=== PATIENT | male | born 1940 | race Caucasian/White ===

== ENCOUNTER 2024-11-03 09:20 | Inpatient (IN) | payer MEDICARE, SELFPAY ==
[2024-11-03] VITALS (11 sets, daily range): BP systolic 109–150; BP diastolic 59–89; PULSE 84–108; TEMP 36.7–38.1; O2SAT 92–97; BMI 31.0; BMI 30.9
--- NOTE | 2024-11-03 09:50 | XR_ITS ---
The [address] [address] Patient Name: PATTIE AMADO MRN: [id number] date: 1940 Sex: M Assigned Patient Location: ER Current Patient Location: ER Accession/Order Number: [id number] Exam Date: 11/03/2024 10:37 Report Date: 11/03/2024 10:43 At the request of: FREDIS MARROQUIN Procedure: XR wrist LT min 3V XR wrist LT min 3V 11/03/2024 10:33 AM SIGNS AND SYMPTOMS: Posterior left wrist pain, popping sensation PROTOCOL: Frontal, lateral, and oblique radiographs of the left wrist COMPARISON: 01/12/2023 FINDINGS: There is severe narrowing of the glenohumeral joint with partial collapse of the lunate similar to the prior exam. There is remodeling of the articular surface of the distal radius similar to the prior study. There is severe degenerative change of the first carpal metacarpal junction with radial subluxation of the base of the first metacarpal and remodeling of the articular surface similar to the prior study. There is diffuse soft tissue swelling. There is vascular calcification in the soft tissues. No acute displaced fracture. XR/XR wrist LT min 3V IMPRESSION: No fracture or dislocation. Similar significant degenerative changes of the radiocarpal joint and first carpometacarpal junction. Impression dictated by: John Farmer M.D.11/03/2024 10:43 AM Dictation Location: [place] [address] Electronically authenticated by: [id number] Y Date: 11/03/2024 10:43
--- NOTE | 2024-11-03 09:57 | ED_ITS ---
HPI HPI - General Adult General Chief complaint: Extremity Injury, Upper Stated complaint: INFECTION Time Seen by Provider: 11/03/24 09:30 Source: patient Mode of arrival: ambulance History of Present Illness HPI narrative: cc = left wrist pain; right hand dog bite Patient brought by EMS to our emergency department for evaluation after he suddenly experienced pain in the left wrist last night around 3 AM when he was getting up to use the bathroom. He denied falling. He said he went to grab something and suddenly felt a pop in his left wrist. He is also complaining of increased pain and redness of the right hand. He suffered a dog bite several days ago and was evaluated in [place] emergency department. He has skin tear there and therefore they applied topical antibiotic ointment and wrapped it up but did not suture it. He has been on Augmentin but it is making him sick with nausea and vomiting. Related Data Home Medications ?Medication ?Instructions ?Recorded ?Confirmed amlodipine 2.5 mg tablet 2.5 mg PO .QD 11/03/24 11/03/24 amoxicillin 875 mg-potassium 1 tab PO Q12H 11/03/24 11/03/24 clavulanate 125 mg tablet atorvastatin 40 mg tablet 40 mg PO .QHS 11/03/24 11/03/24 bumetanide 2 mg tablet 2 mg PO QAM 11/03/24 11/03/24 carvedilol 3.125 mg tablet 3.125 mg PO Q12H 11/03/24 11/03/24 doxepin 10 mg capsule 10 mg PO TID 11/03/24 11/03/24 fenofibrate nanocrystallized 145 145 mg PO .QD 11/03/24 11/03/24 mg tablet metoclopramide HCl 5 mg tablet 5 mg PO AC 11/03/24 11/03/24 omeprazole 40 mg capsule,delayed 40 mg PO .BIDAC 11/03/24 11/03/24 release ondansetron 4 mg disintegrating 4 mg PO Q8H PRN nausea and vomiting 11/03/24 11/03/24 tablet potassium chloride 20 mEq 20 meq PO QAM 11/03/24 11/03/24 tablet,extended release(part/cryst) prednisone 10 mg tablet 10 mg PO BIDWM 11/03/24 11/03/24 primidone 50 mg tablet 100 mg PO Q8H 11/03/24 11/03/24 tamsulosin 0.4 mg capsule 0.4 mg PO .QD 11/03/24 11/03/24 Allergies Allergy/AdvReac Type Severity Reaction Status Date / Time rivaroxaban (From Xarelto) AdvReac Severe kidney Verified 11/03/24 09:36 failure ticagrelor (From Brilinta) AdvReac Severe kidney Verified 11/03/24 09:36 failure Opioid HPI Opioid Management Most Recent Opioid Data: No Data to Display PFSH PFSH Social History Little interest or pleasure in doing things: not at all Feeling down, depressed, or hopeless: not at all Exam Narrative Exam Narrative: Nurses notes and vital signs reviewed and patient is not hypoxic. afebrile General: Well-appearing and in no apparent distress. Skin: Warm, dry, no pallor noted. No rash. Head: Normocephalic, atraumatic. Neck: Supple, non-tender. Eye: Pupils are equal, round and EOMI. No scleral icterus. Ears, Nose, Mouth, and Throat: Oral mucosa is dry Cardiovascular: Tachycardia. Respiratory: No accessory muscle use or respiratory distress. Lungs are clear to auscultation, no wheezing, rales or rhonchi Musculoskeletal: Left wrist = tenderness with some swelling throughout the left wrist. He has decreased range of motion due to the pain. EMS had applied a rigid splint to the volar portion of the left hand, wrist and forearm in order to help secure that left wrist -and wrapped in Kerlix. Right hand = 2 skin tears that are shallow are noted on the dorsal aspect of the right hand. He has increased pain, redness and swelling of the right thumb. Any movement of the right thumb causes pain. Remainder of the left upper extremity and right upper extremity are unremarkable. Neurological: A&O x4. No cranial nerve dysfunction observed. No truncal ataxia. Moves all extremities. Sensation intact. Psychiatric: Cooperative and interactive. Normal mood and affect. Constitutional Vital Signs, click to edit/add: Last Vital Signs Temp 99.5 F 11/03/24 09:23 Pulse 102 H 11/03/24 09:23 Resp 22 H 11/03/24 09:23 BP 112/59 11/03/24 09:23 Pulse Ox 97 11/03/24 10:01 O2 Del Method Nasal Cannula 11/03/24 10:01 O2 Flow Rate 3 11/03/24 10:01 Course Vital Signs Vital signs: Vital Signs Temperature 99.5 F 11/03/24 09:23 Pulse Rate 102 H 11/03/24 09:23 Respiratory Rate 22 H 11/03/24 09:23 Blood Pressure 112/59 11/03/24 09:23 Pulse Oximetry 97 11/03/24 09:23 Oxygen Delivery Method Nasal Cannula 11/03/24 09:23 Oxygen Delivery Flow Rate 3 11/03/24 09:23 Temperature 99.5 F 11/03/24 09:23 Pulse Rate 102 H 11/03/24 09:23 Respiratory Rate 22 H 11/03/24 09:23 Blood Pressure 112/59 11/03/24 09:23 Pulse Oximetry 97 11/03/24 10:01 Oxygen Delivery Method Nasal Cannula 11/03/24 10:01 Oxygen Delivery Flow Rate 3 11/03/24 10:01 Medical Decision Making MDM Narrative Medical decision making narrative: The patient was given oral dissolvable Zofran. X-rays of the left wrist were also ordered. He was ordered to receive oral doxycycline -we can switch him from the Augmentin to doxycycline since the is having GI upset. I talked to him about the importance of taking the antibiotic with food, therefore I will also prescribe some Zofran so that his appetite is stimulated and his nausea is controlled. ED nurse applied topical bacitracin to the wounds of the right hand -he is outside of the window for any suture repair. She also dressed with the right hand with dry gauze. X-rays of the left wrist were read by the radiologist. The degenerative changes of the radiocarpal joint and first carpometacarpal junction are all old and can be seen on comparison imaging on January 12, 2023. The patient was informed of these results and discharged home. David wrap was applied to the patient's left wrist by the emergency department nurse. Because of the deformity in the left hand he does not appropriately fit into a Velcro wrist splint. I asked him to change his antibiotic from Augmentin to doxycycline. When I went to talk to him about these findings, he told me that he is not able to care for himself. He told me that he is too weak to walk due to chronic muscle atrophy in his legs. He says that his cannot take care of him either. He said that the pain in the left wrist will make him unable to get around and do it he needs to at home. He also said that the infection in the right hand has further limited his ability to take care of himself. He told me that the Augmentin is further worsen this by making him so sick that he cannot eat or drink appropriately. He told me that he had previously been in a jail for care - he could not provide a timeline for that. I spoke with Dr. Stauffer, he agreed to admit this patient for further monitoring and care. Will do an evaluation to try and ascertain his ability to take care of himself. He he may eventually need jail care once his acute hand infection and difficulty ambulating can be investigated and addressed. Imaging Data xr wrist: Radiologist's impression: ITS Impressions Wrist X-Ray 11/03/24 09:50 IMPRESSION: No fracture or dislocation. Similar significant degenerative changes of the radiocarpal joint and first carpometacarpal junction. Impression dictated by: John Farmer M.D.11/03/2024 10:43 AM Dictation Location: [facility] Electronically authenticated by: [id number] Y Date: 11/03/2024 10:43 Discharge Plan Discharge Chief Complaint: Extremity Injury, Upper Clinical Impression: Cellulitis of hand, right, Dog bite, Adult failure to thrive, Left wrist sprain Patient Disposition: Admitted As Inpatient Time of Disposition Decision: 11:29 Prescriptions / Home Meds: No Action atorvastatin 40 mg tablet 40 mg PO .QHS primidone 50 mg tablet 100 mg PO Q8H prednisone 10 mg tablet 10 mg PO BIDWM bumetanide 2 mg tablet 2 mg PO QAM amlodipine 2.5 mg tablet 2.5 mg PO .QD doxepin 10 mg capsule 10 mg PO TID omeprazole 40 mg capsule,delayed release(DR/EC) 40 mg PO .BIDAC carvedilol 3.125 mg tablet 3.125 mg PO Q12H potassium chloride 20 mEq tablet,ER particles/crystals 20 meq PO QAM metoclopramide HCl 5 mg tablet 5 mg PO AC tamsulosin 0.4 mg capsule 0.4 mg PO .QD ondansetron 4 mg tablet,disintegrating 4 mg PO Q8H PRN (Reason: nausea and vomiting) amoxicillin-pot clavulanate 875-125 mg tablet 1 tab PO Q12H Rx Instructions: THRU 11/06/24 fenofibrate nanocrystallized 145 mg tablet 145 mg PO .QD Print Language: Pashto Referrals: Physician,Non-Staff, MD [Physician] - 1 week
--- NOTE | 2024-11-03 10:01 | PC.NURSE ---
pt states he wears 3 to 4L of O2 at home at all times.
[2024-11-03] MEDS: BACITRACIN 0.9 GM PACKET 1 PACKET TOPICAL (10:08)
[2024-11-03] MEDS: DOXYCYCLINE MONOHYDRATE 100 MG CAPSULE PO (10:08)
[2024-11-03] MEDS: ONDANSETRON 4 MG RAPDIS TABLET SL (10:08)
[2024-11-03 11:45] LABS: Basophils Absolute Auto 0.1 10^3/uL (0.0-0.1); Basophils Percent Auto 0.4 % (0.2-2.0); Eosinophils Absolute Auto 0.3 10^3/uL (0.0-0.7); Eosinophils Percent Auto 2.1 % (0.9-7.0); Hematocrit 35.2 % (42.0-54.0); Hemoglobin 11.6 g/dL (14.0-18.0); Immature Granulocytes Abs Auto 0.13 10^3/uL (0.00-0.03); Immature Granulocytes Pct Auto 0.9 % (0.0-0.5); Lymphocytes Absolute Auto 2.4 10^3/uL (1.2-3.8); Lymphocytes Percent Auto 16.5 % (20.5-60.0); Mean Corpuscular Hemoglobin 31.8 pg (25.9-34.0); Mean Corpuscular Volume 96.4 fL (80.0-94.0); Mean Platelet Volume 10.2 fL (9.5-13.5); Monocytes Absolute Auto 2.3 10^3/uL (0.3-0.8); Monocytes Percent Auto 15.6 % (1.7-12.0); Neutrophils Absolute Auto 9.5 10^3/uL (1.4-6.5); Neutrophils Percent Auto 64.5 % (43.0-75.0); Platelet Count 206 10^3/uL (150-450); Red Blood Count 3.65 10^6/uL (4.70-6.10); Red Cell Distribution Width 15.3 % (11.0-15.0); White Blood Count 14.7 10^3/uL (4.0-11.0)
--- NOTE | 2024-11-03 11:49 | P.HP_ITS ---
HPI H&P: HPI History of Present Illness Chief complaint: INFECTION Narrative: Patient was seen in the emergency room a few days earlier secondary to dog bite he was prescribed Augmentin, unable to tolerate that started having increasing nausea vomiting and then this morning had fever and chills, presented to the emergency room, significant leukocytosis, labs are not all back yet but with fever, tachycardia, leukocytosis and wound on hand consistent with possible tenosynovitis, sepsis highly likely, lactic acidosis is pending, patient will be admitted for workup and treatment of sepsis secondary to dog bite When I saw patient in the emergency room, resting very uncomfortable in bed, having shaking chills and fever had just spiked just prior to that over 101. Denies chest pain or shortness of breath, he has a baseline shortness of breath but does not feel any worse with that, mostly complaining of pain in the left hand Opioid HPI Opioid Management Most Recent Pain and Opioid Data: Last NOV Pain Assessment 11/03/24 11:53 Review of Systems ROS Status of ROS 10 or more systems reviewed and unremark able except as noted in history and below [facility] Medical History (Updated 11/03/24 @ 12:03 by [place] Stauffer MD) Arthritis ?M19.90 - Unspecified osteoarthritis, unspecified site (ICD-10) Kidney disease ?N28.9 - Disorder of kidney and ureter, unspecified (ICD-10) Hypertension ?I10 - Essential (primary) hypertension (ICD-10) Surgical History (Updated 11/03/24 @ 11:51 by Emily Espinal) H/O heart artery stent ?Z95.5 - Presence of coronary angioplasty implant and graft (ICD-10) Social History Little interest or pleasure in doing things: not at all Feeling down, depressed, or hopeless: not at all Meds Home Medications and Allergies Home Medications ?Medication ?Instructions ?Recorded ?Confirmed ?Type amlodipine 2.5 mg tablet 2.5 mg PO .QD 11/03/24 11/03/24 History amoxicillin 875 mg-potassium 1 tab PO Q12H 11/03/24 11/03/24 History clavulanate 125 mg tablet atorvastatin 40 mg tablet 40 mg PO .QHS 11/03/24 11/03/24 History bumetanide 2 mg tablet 2 mg PO QAM 11/03/24 11/03/24 History carvedilol 3.125 mg tablet 3.125 mg PO Q12H 11/03/24 11/03/24 History doxepin 10 mg capsule 10 mg PO TID 11/03/24 11/03/24 History fenofibrate nanocrystallized 145 145 mg PO .QD 11/03/24 11/03/24 History mg tablet metoclopramide HCl 5 mg tablet 5 mg PO AC 11/03/24 11/03/24 History omeprazole 40 mg capsule,delayed 40 mg PO .BIDAC 11/03/24 11/03/24 History release ondansetron 4 mg disintegrating 4 mg PO Q8H PRN nausea and vomiting 11/03/24 11/03/24 History tablet potassium chloride 20 mEq 20 meq PO QAM 11/03/24 11/03/24 History tablet,extended release(part/cryst) prednisone 10 mg tablet 10 mg PO BIDWM 11/03/24 11/03/24 History primidone 50 mg tablet 100 mg PO Q8H 11/03/24 11/03/24 History tamsulosin 0.4 mg capsule 0.4 mg PO .QD 11/03/24 11/03/24 History Allergies Allergy/AdvReac Type Severity Reaction Status Date / Time rivaroxaban (From Xarelto) AdvReac Severe kidney Verified 11/03/24 09:36 failure ticagrelor (From Brilinta) AdvReac Severe kidney Verified 11/03/24 09:36 failure Exam Constitutional Vital Signs, click to edit/add: Last Vital Signs Temp 99.5 F 11/03/24 09:23 Pulse 102 H 11/03/24 09:23 Resp 22 H 11/03/24 09:23 BP 112/59 11/03/24 09:23 Pulse Ox 97 11/03/24 10:01 O2 Del Method Nasal Cannula 11/03/24 10:01 O2 Flow Rate 3 11/03/24 10:01 Documenting provider has reviewed patient's vital signs: yes Common normals: apparent distress (Moderate distress secondary to shaking chills) Respiratory Common normals: normal respiratory effort (Tachypneic secondary to chills) Auscultation: diminished lung sounds Cardio Common normals: regular rate and regular rhythm Extremity Common normals: abnormal to inspection (Left hand in David wrap, does have some erythema and swelling in the area of ) and limited ROM (Patient does have some mild pain with elevation of fingers but not severe) Other: Bilateral lower extremities with trace to 1+ edema Results Labs Labs: Short CBC 11/03/24 Range/Units 11:37 WBC 14.7 H (4.0-11.0) 10^3/uL Hgb 11.6 L (14.0-18.0) g/dL Hct 35.2 L (42.0-54.0) % Plt Count 206 (150-450) 10^3/uL Assessment and Plan Assessment and Plan (1) Dog bite: (2) Cellulitis of hand, right: (3) Sepsis: Plan Admission findings: Patient with fever, tachycardia, respiratory distress, leukocytosis, lactate is pending but would meet criteria for sepsis secondary to a dog bite with possible tendon involvement. 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-according to his med list not on any inhalers, does wear 3 L of supplemental oxygen has good O2 saturations with that Coronary artery disease with stent-will check BNP and high-sensitivity troponin, does have some mild peripheral edema Hypertension-continue his home medications Chronic combined congestive heart failure by history-hold off on aggressive fluid resuscitation, will hold off on bumetanide secondary to possible acute kidney injury with the sepsis Generalized anxiety disorder-continue with home medications GERD-continue with home medications BPH-continue with home medications Admission status: Patient with failed outpatient treatment of dog bite now with fever and chills and symptoms consistent with tenosynovitis leading to sepsis, possibly severe, medically necessary treatment will span 2 midnights. Inpatient status
[2024-11-03] MEDS: ACETAMINOPHEN 500 MG TABLET 1000 MG PO (11:53)
[2024-11-03 12:00] LABS: Alanine Aminotransferase 24 U/L (16-63); Albumin Globulin Ratio 0.6; Albumin Level 2.1 g/dL (3.4-5.0); Alkaline Phosphatase 105 U/L (46-116); Anion Gap 19.7; Aspartate Amino Transferase 26 U/L (15-37); Bilirubin Total 0.8 mg/dL (0.2-1.0); Calcium 8.5 mg/dL (8.5-10.1); Carbon Dioxide 19.6 mmol/L (21.0-32.0); Chloride 105 mmol/L (98-107); Estimated GFR (African America 57 (>=60 mL/min/1.73m^2); Estimated GFR (Non-African Ame 47 (>=60 mL/min/1.73m^2); Globulin 3.7 g/dL; Glucose 69 mg/dL (74-106); Potassium 4.3 mmol/L (3.5-5.1); Sodium 140 mmol/L (136-145); Total Protein 5.8 g/dL (6.4-8.2)
[2024-11-03 12:05] LABS: Lactate/Lactic Acid 1.5 mmol/L (0.4-2.0)
[2024-11-03 12:16] LABS: Erythrocyte Sedimentation Rate 29 mm/hr (<=20)
[2024-11-03 12:23] LABS: Bilirubin Urine MODERATE (NEGATIVE); Blood Urine NEGATIVE (NEGATIVE); Clarity Urine CLEAR (CLEAR); Color Urine DK. YELLOW (YELLOW); Glucose Urine UA NEGATIVE (NEGATIVE); Ketones Urine TRACE mg/dL (NEGATIVE); Leukocyte Esterase Urine TRACE (NEGATIVE); Nitrite Urine NEGATIVE (NEGATIVE); Protein Urine 30 mg/dL (NEG/TRACE); Specific Gravity Urine >=1.030 (1.005-1.025); Urobilinogen Urine 0.2 EU/dL (0.2-1.0); pH Urine 5.5 (5.0-9.0)
[2024-11-03 12:25] LABS: Urine Microscopic Indicated YES
[2024-11-03 12:29] LABS: Bacteria Urine TRACE #/HPF (NONE SEEN); Cast Seen? SEEN #/LPF (NONE SEEN); Crystals Seen? None Seen #/HPF (None Seen); Hyaline Casts Urine FEW; Mucus Urine TRACE (NONE SEEN); Squamous Epithelial Cell Urine RARE #/LPF (NONE/RARE); Urine Culture Indicated NO
[2024-11-03 12:30] LABS: C Reactive Protein 26.85 mg/dL (<=0.50)
[2024-11-03 12:34] LABS: pH VBG 7.419 (7.330-7.430)
[2024-11-03 12:35] LABS: PCO2 VBG 31.3 mmHg (40.0-52.0)
[2024-11-03 12:43] LABS: Influenza Virus A Antigen Negative; Influenza Virus B Antigen Negative; Internal Control Within Normal Limits; SARS-CoV-2 Ag NEGATIVE (NEGATIVE)
[2024-11-03] MEDS: PRIMIDONE 50 MG TABLET 100 MG PO ×2 (13:56→21:26)
[2024-11-03] MEDS: LACTATED RINGER'S SOLUTION 1,000 ML 100 ML IV (13:56)
[2024-11-03] MEDS: AMLODIPINE BESYLATE 5 MG TABLET 2.5 MG PO (13:56)
[2024-11-03] MEDS: CARVEDILOL 3.125 MG TABLET PO ×2 (13:56→21:27)
[2024-11-03] MEDS: LINEZOLID IN DEXTROSE 5% 600 MG/300 ML PIGGYBACK 300 MG IV (13:56)
[2024-11-03] MEDS: TAMSULOSIN HCL 0.4 MG CAPSULE PO (13:56)
[2024-11-03] MEDS: DOXEPIN HCL 10 MG CAPSULE PO ×2 (13:57→21:27)
[2024-11-03] MEDS: PIPERACILLIN SODIUM/TAZOBACTAM 3.375 GM in 0.9 % SODIUM CHLORIDE 50 ML IV ×2 (16:09→23:30)
[2024-11-03] MEDS: PREDNISONE 10 MG TABLET PO (16:10)
[2024-11-03] MEDS: METOCLOPRAMIDE HCL 10 MG TABLET 5 MG PO (16:10)
[2024-11-03] MEDS: OMEPRAZOLE 40 MG CAPSULE.DR PO (16:10)
--- NOTE | 2024-11-03 17:22 | ECG_ITS ---
The [facility] Test Date: 2024-11-03 Pat Name: PATTIE AMADO Department: Room: Gender: Male Referral Manager: : 1940 Requested By: RAYMOND ROBLEDO Order Number: [id number] Reading MD: RAYMOND ROBLEDO Measurements Intervals [place] Rate: 89 P: [place]: QRS: 56 QRSD: 79 T: 70 QT: 340 QTc: 414 Interpretive Statements SInus with PAC's Compared to ECG 01/12/2023 15:55:23 Sinus rhythm no longer present Electronically Signed On 11-04-2024 6:10:49 EST by RAYMOND ROBLEDO
[2024-11-03 18:01] LABS: Troponin I High Sensitivity 85.5 pg/mL (4.0-76.1)
[2024-11-03] MEDS: KETOROLAC TROMETHAMINE 30 MG/ML VIAL 15 MG IVP (18:16)
[2024-11-03] MEDS: DEXAMETHASONE SOD PHOS 20 MG/5 ML VIAL 6 MG IV (18:16)
--- NOTE | 2024-11-03 18:22 | PC.NURSE ---
1723 - patient called out stating he is having chest pain. states is feels like someone is stabbing him and is a 10/10. Physician notified immediately via secure texting while vitals are being taken on patient. EKG orders, labs ordered, and assessment completed. 1725- Physician asked editorial writer to assess if it hurts worse with palpation, patient stated yes it did. 1738- EKG result sent to physician. 1745- Patient stated that pain was better but it still feels like a stabbing feeling. 1754- Patient called out for the bedpan, once patient was laid flat to put on bedpan patient started yelling that the pain was 10/10 again laying flat, and eased again when HOB elevated. 1754- Physician has been continuously updated and communicating through tiger text during everything that is happening 1757- physician is informed that patient is placed on tele and is not currently on any blood thinners. 1805- physician notified of critical high troponin. 1819- patient given toradol and dexamethason as ordered per physician.
[2024-11-03 18:37] LABS: Troponin I High Sensitivity 52.2 pg/mL (4.0-76.1)
[2024-11-03 19:31] LABS: C. Difficile PCR NEGATIVE
[2024-11-03] MEDS: ENOXAPARIN SODIUM 80 MG/0.8 ML SYRINGE SUBQ (21:27)
[2024-11-03] MEDS: ATORVASTATIN CALCIUM 40 MG TABLET PO (21:27)
[2024-11-03 21:51] LABS: Troponin I High Sensitivity 78.9 pg/mL (4.0-76.1)
[2024-11-04] VITALS (24 sets, daily range): BP systolic 93–129; BP diastolic 52–62; PULSE 59–84; TEMP 36.5–37.6; O2SAT 91–97
[2024-11-04] MEDS: LACTATED RINGER'S SOLUTION 1,000 ML 100 ML IV ×2 (00:15→15:30)
--- NOTE | 2024-11-04 01:36 | PC.NURSE ---
0005 Patient informed that employee received needle stick after drawing patient's blood previous this shift. Explained to patient protocol to draw labs including HIV and Hepatitis panels. Verbal informed consent received from patient to draw appropriate/necessary Labs. Janelle Willoughby RN was also present with this RN during explanation to patient and verbal consent. Leslie Edwards MACHINE COMPOSITOR, Hospitalist preparation operator was updated previously on needle stick injury to employee and ordered appropriate labs on patient.
[2024-11-04 01:45] LABS: Troponin I High Sensitivity 56.4 pg/mL (4.0-76.1)
[2024-11-04 02:03] LABS: HIV Antigen NON-REACTIVE (NONREACTIVE); Internal Control Within Normal Limits
[2024-11-04 02:22] LABS: Glucometer 100 mg/dL (74-106)
[2024-11-04] MEDS: LINEZOLID IN DEXTROSE 5% 600 MG/300 ML PIGGYBACK 300 MG IV ×2 (04:02→15:30)
[2024-11-04] MEDS: PRIMIDONE 50 MG TABLET 100 MG PO ×3 (05:39→21:08)
[2024-11-04] MEDS: DOXEPIN HCL 10 MG CAPSULE PO ×3 (05:39→21:08)
[2024-11-04] MEDS: PIPERACILLIN SODIUM/TAZOBACTAM 3.375 GM in 0.9 % SODIUM CHLORIDE 50 ML IV ×3 (06:00→22:19)
[2024-11-04 06:28] LABS: Mean Corpuscular HGB Conc 32.3 g/dL (29.9-35.2); Mean Corpuscular Hemoglobin 31.3 pg (25.9-34.0); Mean Corpuscular Volume 97.2 fL (80.0-94.0); Mean Platelet Volume 11.2 fL (9.5-13.5); Platelet Count 132 10^3/uL (150-450); Red Blood Count 3.19 10^6/uL (4.70-6.10); Red Cell Distribution Width 14.7 % (11.0-15.0); White Blood Count 9.1 10^3/uL (4.0-11.0)
[2024-11-04 06:50] LABS: Alanine Aminotransferase 18 U/L (16-63); Albumin Globulin Ratio 0.5; Albumin Level 1.6 g/dL (3.4-5.0); Alkaline Phosphatase 68 U/L (46-116); Anion Gap 18.4; Aspartate Amino Transferase 46 U/L (15-37); BUN Creatinine Ratio 10.5; Bilirubin Total 0.5 mg/dL (0.2-1.0); C Reactive Protein 27.54 mg/dL (<=0.50); Calcium 8.1 mg/dL (8.5-10.1); Chloride 103 mmol/L (98-107); Estimated GFR (African America 41 (>=60 mL/min/1.73m^2); Estimated GFR (Non-African Ame 34 (>=60 mL/min/1.73m^2); Globulin 3.3 g/dL; Glucose 138 mg/dL (74-106); Potassium 4.4 mmol/L (3.5-5.1); Sodium 137 mmol/L (136-145); Total Protein 4.9 g/dL (6.4-8.2)
[2024-11-04 07:04] LABS: Lymphocytes Absolute Manual 0.91 10^3/uL (1.20-3.80); Monocytes Absolute Manual 0.72 10^3/uL (0.30-0.80); Segmented Neut Absolute Manual 7.46 10^3/uL (1.4-6.5)
[2024-11-04] MEDS: PREDNISONE 10 MG TABLET PO ×2 (07:45→17:40)
[2024-11-04] MEDS: 0.9 % SODIUM CHLORIDE 1,000 ML 250 ML IV (07:45)
[2024-11-04] MEDS: OMEPRAZOLE 40 MG CAPSULE.DR PO (07:45)
[2024-11-04] MEDS: METOCLOPRAMIDE HCL 10 MG TABLET 5 MG PO ×3 (07:45→15:31)
--- NOTE | 2024-11-04 07:50 | CT_ITS ---
The [address] [address] Patient Name: PATTIE AMADO MRN: [id number] date: 1940 Sex: M Assigned Patient Location: [place] Current Patient Location: [place] Accession/Order Number: [id number] Exam Date: 11/04/2024 10:54 Report Date: 11/04/2024 11:05 At the request of: RAYMOND ROBLEDO MD Procedure: CT hand LT wo con CT left hand/wrist WITHOUT CONTRAST WITH 3D RECONSTRUCTIONS: CLINICAL HISTORY: pain posterior left wrist pain radiating into left hand after getting up from bathroom 2 nights ago. COMPARISON: Left wrist series 11/03/2024 TECHNIQUE: Spiral axial unenhanced images were obtained through the left hand/wrist. Sagittal, coronal reconstructions were also reviewed. This CT exam was performed using one or more following dose reduction techniques: Automated exposure control, adjustment of the mA and/or kV according to patient size, or use of iterative reconstruction technique. FINDINGS: Left wrist: There appears to be soft tissue swelling involving the dorsum of the hand. 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 Scattered moderate to severe degenerative changes particularly involving the CMC joint of the thumb and radiocarpal joint with associated cystic changes. No fracture is noted. No bony erosions. Vascular calcifications. No fluid collection. Left hand: Mild soft tissue swelling. No fluid collection. No soft tissue gas. No fracture is seen. Moderate degenerative changes involving the MCP joint of the thumb. Mild degenerative changes involving the IP joints. No bony erosions. CT/CT hand LT wo con IMPRESSION: MILD SOFT TISSUE SWELLING INVOLVING THE HAND AND WRIST WITHOUT ACUTE FRACTURE. 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 SCATTERED MODERATE TO SEVERE DEGENERATIVE CHANGES INVOLVING THE WRIST PARTICULARLY INVOLVING THE CMC JOINT OF THE THUMB AND RADIOCARPAL JOINT. MODERATE DEGENERATIVE CHANGES INVOLVING THE MCP JOINT OF THE THUMB. MILD DEGENERATIVE CHANGES OF THE IP JOINTS. Impression dictated by: Donnie Brooks Jr., D.O.11/04/2024 11:05 AM Dictation Location: [place] [address] Electronically authenticated by: [id number] Y Date: 11/04/2024 11:05
--- NOTE | 2024-11-04 07:50 | CT_ITS ---
The [address] [address] Patient Name: PATTIE AMADO MRN: [id number] date: 1940 Sex: M Assigned Patient Location: MS Current Patient Location: [place] Accession/Order Number: [id number] Exam Date: 11/04/2024 10:54 Report Date: 11/04/2024 11:05 At the request of: RAYMOND ROBLEDO MD Procedure: CT hand LT wo con CT left hand/wrist WITHOUT CONTRAST WITH 3D RECONSTRUCTIONS: CLINICAL HISTORY: pain posterior left wrist pain radiating into left hand after getting up from bathroom 2 nights ago. COMPARISON: Left wrist series 11/03/2024 TECHNIQUE: Spiral axial unenhanced images were obtained through the left hand/wrist. Sagittal, coronal reconstructions were also reviewed. This CT exam was performed using one or more following dose reduction techniques: Automated exposure control, adjustment of the mA and/or kV according to patient size, or use of iterative reconstruction technique. FINDINGS: Left wrist: There appears to be soft tissue swelling involving the dorsum of the hand. 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 Scattered moderate to severe degenerative changes particularly involving the CMC joint of the thumb and radiocarpal joint with associated cystic changes. No fracture is noted. No bony erosions. Vascular calcifications. No fluid collection. Left hand: Mild soft tissue swelling. No fluid collection. No soft tissue gas. No fracture is seen. Moderate degenerative changes involving the MCP joint of the thumb. Mild degenerative changes involving the IP joints. No bony erosions. CT/CT wrist LT wo con IMPRESSION: MILD SOFT TISSUE SWELLING INVOLVING THE HAND AND WRIST WITHOUT ACUTE FRACTURE. 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 SCATTERED MODERATE TO SEVERE DEGENERATIVE CHANGES INVOLVING THE WRIST PARTICULARLY INVOLVING THE CMC JOINT OF THE THUMB AND RADIOCARPAL JOINT. MODERATE DEGENERATIVE CHANGES INVOLVING THE MCP JOINT OF THE THUMB. MILD DEGENERATIVE CHANGES OF THE IP JOINTS. Impression dictated by: Donnie Brooks Jr., D.O.11/04/2024 11:05 AM Dictation Location: [place] [address] Electronically authenticated by: [id number] Y Date: 11/04/2024 11:05
--- NOTE | 2024-11-04 08:04 | PC.NURSE ---
applied compression hose as requested by Dr. Stauffer after rounds this morning.
[2024-11-04] MEDS: MORPHINE SULFATE 4 MG/ML VIAL 3 MG IV (08:48)
[2024-11-04] MEDS: TAMSULOSIN HCL 0.4 MG CAPSULE PO (08:52)
[2024-11-04] MEDS: FENOFIBRATE 54 MG TABLET 162 MG PO (08:52)
[2024-11-04] MEDS: AMLODIPINE BESYLATE 5 MG TABLET 2.5 MG PO (08:52)
[2024-11-04] MEDS: POTASSIUM CHLORIDE 10 MEQ ER TABLET 20 MEQ PO (08:52)
[2024-11-04] MEDS: CLOPIDOGREL BISULFATE 75 MG TABLET PO (08:53)
[2024-11-04] MEDS: PANTOPRAZOLE SODIUM 40 MG VIAL IV ×2 (08:53→21:08)
[2024-11-04] MEDS: CARVEDILOL 3.125 MG TABLET PO ×2 (08:53→21:08)
--- NOTE | 2024-11-04 09:31 | P.PN_ITS ---
Progress Note: Subjective Subjective Interval history: Patient looks better today, not having shaking chills when I saw him, still having significant pain on that left hand, the right hand is the one that has the bite the left hand is injured and trying to stand up Exam Constitutional Vital Signs, click to edit/add: Last Vital Signs Temp 97.8 F 11/04/24 08:53 Pulse 66 11/04/24 08:35 Resp 20 11/04/24 08:35 BP 129/60 11/04/24 08:52 Pulse Ox 94 L 11/04/24 08:35 O2 Del Method Nasal Cannula 11/04/24 08:35 O2 Flow Rate 3 11/04/24 08:35 Documenting provider has reviewed patient's vital signs: yes Common normals: no apparent distress Chest Common normals: inspection of chest normal Respiratory Common normals: normal respiratory effort (Tachypneic secondary to chills), no use of accessory muscles and clear to auscultation bilaterally Auscultation: diminished lung sounds Cardio Common normals: regular rate, regular rhythm and no murmurs Extremity Common normals: abnormal to inspection (Left hand in David wrap, swelling persisting) and limited ROM (Patient does have some mild pain with elevation of fingers but not severe) Other: Bilateral lower extremities with trace to 1+ edema Progress Note: Objective Labs Labs: Short CBC 11/03/24 11/04/24 Range/Units 11:37 05:50 WBC 14.7 H 9.1 (4.0-11.0) 10^3/uL Hgb 11.6 L 10.0 L (14.0-18.0) g/dL Hct 35.2 L 31.0 L (42.0-54.0) % Plt Count 206 132 L (150-450) 10^3/uL BMP 11/03/24 11/04/24 11:37 05:50 Sodium 140 137 Potassium 4.3 4.4 Chloride 105 103 Carbon Dioxide 19.6 L 20.0 L BUN 13.0 20.0 H Creatinine 1.45 H 1.90 H Glucose 69 L 138 H Calcium 8.5 8.1 L Liver Function 11/03/24 11/04/24 Range/Units 11:37 05:50 Total Bilirubin 0.8 0.5 (0.2-1.0) mg/dL AST 26 46 H (15-37) U/L ALT 24 18 (16-63) U/L Alkaline Phosphatase 105 68 (46-116) U/L Albumin 2.1 L 1.6 L (3.4-5.0) g/dL Urine 11/03/24 Range/Units 11:58 Urine Color Dk. yellow (YELLOW) Urine Clarity Clear (CLEAR) Urine pH 5.5 (5.0-9.0) Ur Specific [place] >=1.030 A (1.005-1.025) Urine Protein 30 A (NEG/TRACE) mg/dL Urine Glucose (UA) Negative (NEGATIVE) mg/dL Progress Note: A&P Assessment and Plan (1) Dog bite: (2) Cellulitis of hand, right: (3) Sepsis: Plan Admission findings: Patient with fever, tachycardia, respiratory distress, leukocytosis, lactate is pending but would meet criteria for sepsis secondary to a dog bite with possible tendon involvement. Sepsis-secondary to dog bite, linezolid secondary to history of renal failure and Zosyn for broad-spectrum coverage, check CT scan, blood cultures pending Chest pain-this is reproducible chest pain did get CTA is concerned about pulmonary embolism with acute onset of the pain and pleuritic nature. CTA negative for pulmonary embolism he does have a history of PE in the past and has been on Eliquis prior Acute elevation in high-sensitivity troponin-improved this morning. Could have been heart rate related or due to the sepsis with NSTEMI type II-start patient on Plavix, holding off on aspirin secondary to 1 kidney, check echo in a.m. 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-according to his med list not on any inhalers, does wear 3 L of supplemental oxygen has good O2 saturations with that Coronary artery disease with stent-will check BNP and high-sensitivity troponin, does have some mild peripheral edema-see above, check echo Hypertension-continue his home medications Chronic combined congestive heart failure by history--see above Generalized anxiety disorder-continue with home medications GERD-continue with home medications Iron deficiency anemia-monitor daily BPH-continue with home medications Severe protein calorie malnutrition-diet supplement Admission status: Patient with failed outpatient treatment of dog bite now with fever and chills and symptoms consistent with tenosynovitis leading to sepsis, medically necessary treatment will span 2 midnights. Inpatient status ?
--- NOTE | 2024-11-04 11:41 | PC.NURSE ---
2 wounds from dog bite largest measures 4 x 4.5 cm and smaler is 1 x 1,25 cm skin is still covering bites. patient tolerated well
[2024-11-04] MEDS: ACETAMINOPHEN 500 MG TABLET 1000 MG PO (17:45)
[2024-11-04] MEDS: ATORVASTATIN CALCIUM 40 MG TABLET PO (21:08)
--- NOTE | 2024-11-04 21:15 | PC.NURSE ---
Patient states bruising and redness on left medial arm has gotten worse. Area bruised, edematous, and warm to touch. Area marked with skin marker and photo obtainedd.
[2024-11-05] VITALS (20 sets, daily range): BP systolic 100–131; BP diastolic 60–79; PULSE 53–77; TEMP 36.3–36.7; O2SAT 93–96
[2024-11-05] MEDS: LINEZOLID IN DEXTROSE 5% 600 MG/300 ML PIGGYBACK 300 MG IV ×2 (01:33→13:47)
[2024-11-05] MEDS: DOXEPIN HCL 10 MG CAPSULE PO ×3 (05:55→21:58)
[2024-11-05] MEDS: PRIMIDONE 50 MG TABLET 100 MG PO ×3 (05:55→21:58)
[2024-11-05] MEDS: LACTATED RINGER'S SOLUTION 1,000 ML 100 ML IV (05:58)
[2024-11-05 06:00] LABS: Basophils Percent Auto 0.1 % (0.2-2.0); Eosinophils Percent Auto 0.4 % (0.9-7.0); Hemoglobin 8.9 g/dL (14.0-18.0); Immature Granulocytes Abs Auto 0.05 10^3/uL (0.00-0.03); Immature Granulocytes Pct Auto 0.5 % (0.0-0.5); Lymphocytes Absolute Auto 0.9 10^3/uL (1.2-3.8); Lymphocytes Percent Auto 9.6 % (20.5-60.0); Mean Corpuscular Hemoglobin 31.7 pg (25.9-34.0); Mean Corpuscular Volume 96.1 fL (80.0-94.0); Mean Platelet Volume 10.8 fL (9.5-13.5); Monocytes Percent Auto 10.3 % (1.7-12.0); Neutrophils Absolute Auto 7.5 10^3/uL (1.4-6.5); Neutrophils Percent Auto 79.1 % (43.0-75.0); Platelet Count 166 10^3/uL (150-450); Red Blood Count 2.81 10^6/uL (4.70-6.10); Red Cell Distribution Width 14.8 % (11.0-15.0); White Blood Count 9.5 10^3/uL (4.0-11.0)
--- NOTE | 2024-11-05 06:00 | CA_ITS ---
Patient Name: PATTIE AMADO MR#: [id number] : 1940 Exam Date: 11/05/2024 Ordering Doctor: DR RAYMOND ROBLEDO . ECHOCARDIOGRAM REPORT PROCEDURE: CA ECHO DOPPLER COMPLETE INDICATIONS: elevated trop COMPARISON: None. DESCRIPTION: COMPLETE ECHOCARDIOGRAM Real-time transthoracic echocardiography with 2D, M-mode, spectral and color flow Doppler performed. QUALITY: Technical quality was good. LEFT VENTRICLE: Normal chamber size. Normal left ventricular wall thickness. LV EF: Global left ventricular systolic function is normal. Calculated left ventricular ejection fraction is 57%. No significant wall motion abnormalities. DIASTOLIC: Normal diastolic function. ATRIAL SEPTUM: Inadequately seen. LEFT ATRIUM: Normal chamber size. RIGHT ATRIUM: Normal chamber size. RIGHT VENTRICLE: Normal chamber size. Normal right ventricular systolic function. TRICUSPID VALVE: Normal mobility and thickness. No stenosis with mild regurgitation. Moderate pulmonary hypertension. RVSP 46mmHg MITRAL VALVE: Normal mobility and thickness. No evidence of mitral valve stenosis. There is no mitral annular calcification. Trivial mitral regurgitation. AORTIC VALVE: Normal trileaflet appearance. Thickened aortic valve. Normal leaflet mobility. No evidence of aortic valve stenosis. Trivial aortic regurgitation. AORTIC ROOT: Normal diameter and appearance. PULMONIC VALVE: Normal thickness and mobility. No stenosis. Trivial regurgitation. PERICARDIUM: Anterior free space; trivial effusion versus fat pad. IVC: Collapses with inspirations. Mild dilatation measuring 2.2cm. CONCLUSION: 1. Global left ventricular systolic function is normal; visually estimated ejection fraction is 55 to 60% 2. Normal right ventricular size and systolic function 3. Normal diastolic function 4. Mild tricuspid regurgitation 5. Moderately elevated right ventricular systolic pressure; RVSP 46 mmHg 6. Anterior free space; trivial effusion versus fat pad Adult Echocardiography Procedure Report Left Ventricle LVEDD (3.7 - 5.6 cm): 4.84 cm LVESD (2.2 - 4.0 cm): 3.54 cm LVIVS thickness (0.6 - 1.2 cm): 1.04 cm LVPW thickness (0.5 - 1.0 cm): 0.69 cm e': 0.13 m/s E - e': 4.92 LVOT Max Gradient: 3.64 mm[Hg] LVOT Area (cm2): 0.95 m/s Peak Velocity (LVOT): 0.95 m/s Mean Velocity (LVOT): 0.58 m/s LVOT Diameter 2.23 cm Left Atrium LA Volume Index (2D A2C): 32.19 ml/m2 Left Atrium Systolic Dimension: 4.37 cm Mitral Valve MV E to A Ratio: 0.82 Mitral Valve A-Wave Peak Velocity: 0.76 m/s Mitral Valve E-Wave Peak Velocity: 0.63 m/s Right Ventricle RV Internal Diastolic Dimension: 4.12 cm Aorta AO Root Diam: 3.41 cm Ascending Ao Diam: 2.79 cm Aortic Valve AoV Area (Peak Stanislaw): 2.04 cm2, 2.04 cm2 AoV Area (VTI): 2.03 cm2, 2.03 cm2 Peak Velocity(Antegrade Flow): 1.82 m/s Peak Gradient(Antegrade Flow): 13.30 mm[Hg] Mean Velocity(Antegrade Flow): 1.27 m/s Mean Gradient(Antegrade Flow): 7.32 mm[Hg] Velocity Time Integral: 40.76 cm Tricuspid Valve Peak Velocity (Regurgitant Flow): 2.88 m/s, 3.09 m/s, 3.07 m/s Pulmonic Valve Mean Gradient: 1.49 mm[Hg] Mean Velocity: 0.58 m/s Peak Velocity: 0.82 m/s, 0.92 m/s Peak Gradient: 2.66 mm[Hg], 3.42 mm[Hg] Right Atrium Right Atrium Systolic Pressure: 78.97 ml, 78.97 ml Dictated by: Jacquelyn Wynne M.D. on 11/05/2024 at 14:36 Approved by: Jacquelyn Wynne M.D. on 11/05/2024 at 14:39
[2024-11-05] MEDS: PIPERACILLIN SODIUM/TAZOBACTAM 3.375 GM in 0.9 % SODIUM CHLORIDE 50 ML IV ×3 (06:01→22:10)
[2024-11-05 06:12] LABS: Erythrocyte Sedimentation Rate 22 mm/hr (<=20)
[2024-11-05 06:17] LABS: Alanine Aminotransferase 19 U/L (16-63); Albumin Globulin Ratio 0.5; Albumin Level 1.6 g/dL (3.4-5.0); Alkaline Phosphatase 59 U/L (46-116); Anion Gap 10.3; Aspartate Amino Transferase 39 U/L (15-37); BUN Creatinine Ratio 15.5; Bilirubin Total 0.2 mg/dL (0.2-1.0); C Reactive Protein 18.01 mg/dL (<=0.50); Calcium 7.7 mg/dL (8.5-10.1); Carbon Dioxide 25.6 mmol/L (21.0-32.0); Chloride 103 mmol/L (98-107); Estimated GFR (African America 48 (>=60 mL/min/1.73m^2); Estimated GFR (Non-African Ame 39 (>=60 mL/min/1.73m^2); Globulin 3.2 g/dL; Glucose 107 mg/dL (74-106); Potassium 3.9 mmol/L (3.5-5.1); Sodium 135 mmol/L (136-145); Total Protein 4.8 g/dL (6.4-8.2)
--- NOTE | 2024-11-05 06:52 | P.PN_ITS ---
Progress Note: Subjective Subjective Interval history: Patient is that he thinks he feels somewhat better, definitely looks better than admission with no shaking chills this morning Exam Constitutional Vital Signs, click to edit/add: Last Vital Signs Temp 97.3 F L 11/05/24 03:57 Pulse 53 L 11/05/24 04:00 Resp 18 11/05/24 03:57 BP 131/73 11/05/24 03:57 Pulse Ox 95 11/05/24 03:57 O2 Del Method CPAP 11/05/24 03:57 O2 Flow Rate 3 11/04/24 08:35 Documenting provider has reviewed patient's vital signs: yes Common normals: no apparent distress Chest Common normals: inspection of chest normal Respiratory Common normals: normal respiratory effort (Tachypneic secondary to chills), no retractions, no use of accessory muscles and clear to auscultation bilaterally Effort & inspection: able to speak in complete sentences Auscultation: diminished lung sounds Cardio Common normals: regular rate and regular rhythm GI Common normals: negative for Normal to inspection, nondistended, normoactive bowel sounds present (Obese) Extremity Common normals: full ROM (Patient does have some mild pain with elevation of fingers but not severe); abnormal to inspection (Left hand in David wrap, swelling persisting) and clubb ing, cyanosis or edema (1+ edema which appears chronic for him) Other: Bilateral lower extremities with trace to 1+ edema Progress Note: Objective Labs Labs: Short CBC 11/05/24 Range/Units 05:36 WBC 9.5 (4.0-11.0) 10^3/uL Hgb 8.9 L (14.0-18.0) g/dL Hct 27.0 L (42.0-54.0) % Plt Count 166 (150-450) 10^3/uL BMP 11/05/24 05:36 Sodium 135 L Potassium 3.9 Chloride 103 Carbon Dioxide 25.6 BUN 26.0 H Creatinine 1.68 H Glucose 107 H Calcium 7.7 L Liver Function 11/05/24 Range/Units 05:36 Total Bilirubin 0.2 (0.2-1.0) mg/dL AST 39 H (15-37) U/L ALT 19 (16-63) U/L Alkaline Phosphatase 59 (46-116) U/L Albumin 1.6 L (3.4-5.0) g/dL Progress Note: A&P Assessment and Plan (1) Dog bite: (2) Cellulitis of hand, right: (3) Sepsis: Plan Admission findings: Patient with fever, tachycardia, respiratory distress, leukocytosis, lactate is pending but would meet criteria for sepsis secondary to a dog bite with possible tendon involvement. Sepsis-secondary to dog bite, linezolid secondary to history of renal failure and Zosyn for broad-spectrum coverage, check CT scan, blood cultures pending- should have results later today though, CRP and ESR are improving, maintain c urrent antibiotics Chest pain-this is reproducible chest pain did get CTA is concerned about pulmonary embolism with acute onset of the pain and pleuritic nature. CTA negative for pulmonary embolism he does have a history of PE in the past and has been on Eliquis prior Left arm erythema-this looks more consistent with bruising, will check ultrasound Acute elevation in high-sensitivity troponin-improved this morning. 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-according to his med list not on any inhalers, does wear 3 L of supplemental oxygen has good O2 saturations with that Coronary artery disease with stent-will check BNP and high-sensitivity troponin, does have some mild peripheral edema-see above, check on echo Hypertension-continue his home medications Chronic combined congestive heart failure by history--see above Generalized anxiety disorder-continue with home medications GERD-continue with home medications Iron deficiency anemia-monitor daily BPH-continue with home medications Severe protein calorie malnutrition-diet supplement Admission status: Patient with failed outpatient treatment of dog bite now with fever and chills and symptoms consistent with tenosynovitis leading to sepsis, medically necessary treatment will span 2 midnights. Inpatient status ?
--- NOTE | 2024-11-05 08:00 | CM.NOTE ---
Pt voices his concerns returning back to home d/t increased weakness and lack of use of hands bilat. Assured pt that PT and OT would evaluate. Pt states he would like to go to [facility] or [facility]. Updated SW. Pt at this time lives at home with and uses walker.
--- NOTE | 2024-11-05 08:18 | CM.NOTE ---
Rounds made with Dr. Stauffer, PT and OT will evaluate pt today for discharge planning. Pt continues to have significant weakness to bilat hands. Discussed with pt plan of care, pt will have echo today and continue IV antibiotics.
[2024-11-05] MEDS: CLOPIDOGREL BISULFATE 75 MG TABLET PO (09:24)
[2024-11-05] MEDS: PANTOPRAZOLE SODIUM 40 MG VIAL IV ×2 (09:24→21:58)
[2024-11-05] MEDS: FENOFIBRATE 54 MG TABLET 162 MG PO (09:24)
[2024-11-05] MEDS: POTASSIUM CHLORIDE 10 MEQ ER TABLET 20 MEQ PO (09:24)
[2024-11-05] MEDS: AMLODIPINE BESYLATE 5 MG TABLET 2.5 MG PO (09:24)
[2024-11-05] MEDS: METOCLOPRAMIDE HCL 10 MG TABLET 5 MG PO ×3 (09:24→17:03)
[2024-11-05] MEDS: CARVEDILOL 3.125 MG TABLET PO ×2 (09:25→21:58)
[2024-11-05] MEDS: TAMSULOSIN HCL 0.4 MG CAPSULE PO (09:25)
[2024-11-05] MEDS: PREDNISONE 10 MG TABLET PO ×2 (09:28→17:04)
--- NOTE | 2024-11-05 09:29 | CM.NOTE ---
Important Message From Medicare discussed with pt, pt verbalizes understanding and signs paper. Original given to pt and copy placed on pt's chart.
--- NOTE | 2024-11-05 09:37 | SWNOTE1 ---
SW received a call from pt's daughter, Ann. She expressed that she is on her way back to [place]. She stated more than likely pt will need SNF. She stated he was at [facility] not too long ago. She stated he was doing well after therapy, but then got sick and went down hill. She stated they have great therapy and would like him to go back there, if not there then [facility]. She stated she thinks they are connected, but not sure. CHRISTOPHER advised that SW has not heard of [facility] and wanted to make sure that it was rehab and covered by insurance. She stated yes he was there for rehab and insurance covered. SW advised that we will have to see what therapy recommends first. She stated she is aware of this and knows how it works. SW to speak with pt as well. SW spoke to case management and pt had voiced he wants [facility] as it is closer. SW to speak with pt.
--- NOTE | 2024-11-05 09:55 | SWNOTE1 ---
CHRISTOPHER stopped in and spoke with pt about SNF. Nurse in room as well. CHRISTOPHER advised pt that SW spoke with his daughter and she mentioned [facility] and [facility]. He stated he did like [facility] and it was really good, but the down side is that his can't visit as it is too far away. He would like [facility] as his first choice, [facility], and then [facility] as 3rd choice. He spoke of being at other facilities in the past. CHRISTOPHER advised pt that CHRISTOPHER will check in to [facility] and see if they have a bed open. CHRISTOPHER reached out to Carol, she is waiting to hear back from [facility] on bed availability.
[2024-11-05 10:44] LABS: Bilirubin Urine NEGATIVE (NEGATIVE); Blood Urine NEGATIVE (NEGATIVE); Clarity Urine CLEAR (CLEAR); Color Urine YELLOW (YELLOW); Glucose Urine UA NEGATIVE (NEGATIVE); Ketones Urine NEGATIVE (NEGATIVE); Leukocyte Esterase Urine NEGATIVE (NEGATIVE); Nitrite Urine NEGATIVE (NEGATIVE); Protein Urine NEGATIVE (NEG/TRACE); Specific Gravity Urine 1.025 (1.005-1.025); Urobilinogen Urine 0.2 EU/dL (0.2-1.0); pH Urine 5.5 (5.0-9.0)
[2024-11-05 10:50] LABS: Urine Microscopic Indicated NO
--- NOTE | 2024-11-05 10:55 | SWNOTE1 ---
CHRISTOPHER heard back from Carol at and they have an opening. Referral sent to [facility]. Referral included face sheet, ED note, H&P, provider notes, case management report, nursing notes, diagnostic imaging, med list, and PT/OT notes.
[2024-11-05 11:02] LABS: Internal Control Within Normal Limits; Occult Blood Negative
[2024-11-05 11:08] LABS: Hepatitis B Surf Ab Quant 42.9 mIU/mL (Immunity>10)
--- NOTE | 2024-11-05 11:18 | SWNOTE1 ---
[facility] is able to accept and will start precert. SW to let pt and daughter know. [facility] is starting precert.
--- NOTE | 2024-11-05 11:38 | SWNOTE1 ---
CHRISTOPHER called and spoke to daughter, Ann, and let her know that [facility] has accepted and starting precert. Daughter and pt did ask about transport. SW advised both of them that family can transport if they want to or sometimes the facility has transport. [facility] does not have transport available. SW let them know that we do use trips if pt needs to go by wheelchair. Pt's daughter did voice to SW that pt's is frail and it would be more safe to have trips take pt over. Precert started to [facility].
[2024-11-05] MEDS: ACETAMINOPHEN 500 MG TABLET 1000 MG PO (11:43)
--- NOTE | 2024-11-05 12:32 | SWNOTE1 ---
SW sent PT note to Carol at [facility] for precert.
--- NOTE | 2024-11-05 13:45 | SWNOTE1 ---
[facility] did ask for pt's insurance cards, but not scanned in. CHRISTOPHER spoke with pt and his was supposed to bring them, but she is not coming in today. CHRISTOPHER let [facility] at know this information.
[2024-11-05] MEDS: ATORVASTATIN CALCIUM 40 MG TABLET PO (21:58)
[2024-11-06] VITALS (10 sets, daily range): BP systolic 133–153; BP diastolic 69–77; PULSE 57–79; TEMP 36.3–36.4; O2SAT 92–96
[2024-11-06] MEDS: LINEZOLID IN DEXTROSE 5% 600 MG/300 ML PIGGYBACK 300 MG IV (02:10)
[2024-11-06 04:07] LABS: RPR Non Reactive (Non Reactive)
[2024-11-06 05:32] LABS: Basophils Percent Auto 0.2 % (0.2-2.0); Eosinophils Percent Auto 0.6 % (0.9-7.0); Hematocrit 27.6 % (42.0-54.0); Immature Granulocytes Abs Auto 0.03 10^3/uL (0.00-0.03); Immature Granulocytes Pct Auto 0.5 % (0.0-0.5); Lymphocytes Absolute Auto 0.7 10^3/uL (1.2-3.8); Lymphocytes Percent Auto 9.8 % (20.5-60.0); Mean Corpuscular HGB Conc 32.6 g/dL (29.9-35.2); Mean Corpuscular Hemoglobin 31.5 pg (25.9-34.0); Mean Corpuscular Volume 96.5 fL (80.0-94.0); Mean Platelet Volume 10.8 fL (9.5-13.5); Monocytes Absolute Auto 0.9 10^3/uL (0.3-0.8); Monocytes Percent Auto 13.3 % (1.7-12.0); Neutrophils Percent Auto 75.6 % (43.0-75.0); Platelet Count 180 10^3/uL (150-450); Red Blood Count 2.86 10^6/uL (4.70-6.10); White Blood Count 6.6 10^3/uL (4.0-11.0)
[2024-11-06] MEDS: PRIMIDONE 50 MG TABLET 100 MG PO (05:35)
[2024-11-06] MEDS: DOXEPIN HCL 10 MG CAPSULE PO (05:35)
[2024-11-06 05:52] LABS: C Reactive Protein 7.71 mg/dL (<=0.50)
[2024-11-06 05:53] LABS: Anion Gap 10.9; BUN Creatinine Ratio 16.2; Calcium 7.7 mg/dL (8.5-10.1); Carbon Dioxide 25.3 mmol/L (21.0-32.0); Chloride 107 mmol/L (98-107); Estimated GFR (African America >60 (>=60 mL/min/1.73m^2); Estimated GFR (Non-African Ame 50 (>=60 mL/min/1.73m^2); Glucose 113 mg/dL (74-106); Potassium 4.2 mmol/L (3.5-5.1); Sodium 139 mmol/L (136-145)
--- NOTE | 2024-11-06 06:37 | P.PN_ITS ---
Progress Note: Subjective Subjective Interval history: Patient is that he thinks he feels somewhat better, definitely looks better than admission with no shaking chills this morning Exam Constitutional Vital Signs, click to edit/add: Last Vital Signs Temp 97.4 F L 11/06/24 03:00 Pulse 64 11/06/24 05:52 Resp 18 11/06/24 03:00 BP 133/69 11/06/24 03:00 Pulse Ox 96 11/06/24 04:34 O2 Del Method Home BIPAP / CPAP 11/06/24 04:34 O2 Flow Rate 3 11/06/24 04:34 Progress Note: Objective Labs Labs: Short CBC 11/06/24 Range/Units 05:13 WBC 6.6 (4.0-11.0) 10^3/uL Hgb 9.0 L (14.0-18.0) g/dL Hct 27.6 L (42.0-54.0) % Plt Count 180 (150-450) 10^3/uL BMP 11/06/24 05:13 Sodium 139 Potassium 4.2 Chloride 107 Carbon Dioxide 25.3 BUN 22.0 H Creatinine 1.36 H Glucose 113 H Calcium 7.7 L Urine 11/05/24 Range/Units 10:23 Urine Color Yellow (YELLOW) Urine Clarity Clear (CLEAR) Urine pH 5.5 (5.0-9.0) Ur Specific [place] 1.025 (1.005-1.025) Urine Protein Negative (NEG/TRACE) mg/dL Urine Glucose (UA) Negative (NEGATIVE) mg/dL Progress Note: A&P Assessment and Plan (1) Dog bite: (2) Cellulitis of hand, right: (3) Sepsis: Plan Admission findings: Patient with fever, tachycardia, respiratory distress, leukocytosis, lactate is pending but would meet criteria for sepsis secondary to a dog bite with possible tendon involvement. Sepsis-secondary to dog bite, linezolid secondary to history of renal failure and Zosyn for broad-spectrum coverage, check CT scan, blood cultures pending- should have results later today though, CRP and ESR are improving, maintain current antibiotics Chest pain-this is reproducible chest pain did get CTA is concerned about pulmonary embolism with acute onset of the pain and pleuritic nature. CTA negative for pulmonary embolism he does have a history of PE in the past and has been on Eliquis prior Left arm erythema-this looks more consistent with bruising, will check ultrasound Acute elevation in high-sensitivity troponin-improved this morning. 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-according to his med list not on any inhalers, does wear 3 L of supplemental oxygen has good O2 saturations with that Coronary artery disease with stent-will check BNP and high-sensitivity troponin, does have some mild peripheral edema-see above, check on echo Hypertension-continue his home medications Chronic combined congestive heart failure by history--see above Generalized anxiety disorder-continue with home medications GERD-continue with home medications Iron deficiency anemia-monitor daily BPH-continue with home medications Severe protein calorie malnutrition-diet supplement Admission status: Patient with failed outpatient treatment of dog bite now with fever and chills and symptoms consistent with tenosynovitis leading to sepsis, medically necessary treatment will span 2 midnights. Inpatient status ?
[2024-11-06] MEDS: METOCLOPRAMIDE HCL 10 MG TABLET 5 MG PO ×2 (08:12→10:52)
[2024-11-06] MEDS: PREDNISONE 10 MG TABLET PO (08:12)
[2024-11-06] MEDS: PANTOPRAZOLE SODIUM 40 MG VIAL IV (08:12)
[2024-11-06] MEDS: 0.9 % SODIUM CHLORIDE 250 ML 10 ML IV (08:13)
[2024-11-06] MEDS: PIPERACILLIN SODIUM/TAZOBACTAM 3.375 GM in 0.9 % SODIUM CHLORIDE 50 ML IV (08:13)
--- NOTE | 2024-11-06 08:34 | CM.NOTE ---
Rounds made with Dr. Stauffer, pt will discharge to [facility] for skilled therapy when medically stable.
--- NOTE | 2024-11-06 09:09 | SWNOTE1 ---
SW had email from Carol at [facility], and pt is approved to go. SW updated nurse and doctor.
--- NOTE | 2024-11-06 09:12 | P.DS_ITS ---
DS: Providers Provider Date of admission: 11/03/24 12:09 Primary care physician: Emani Simon ND Consults: 11/03/24 Consult to Dietitian Routine Reason for consultation: weight loss 11/03/24 11:49 Occupational Therapy Eval and Treat Routine Reason for consultation: eval and treat Has provider been notified: No Physical Therapy Eval and Treat Routine Reason for consultation: Eval and Treat Has provider been notified: No 11/05/24 08:08 Consult to Piano Regulator Routine Has provider been notified: No Reason for consult:: Retirement DS: Diagnosis Discharge Diagnosis (1) Dog bite: (2) Cellulitis of hand, right: (3) Sepsis: Plan Admission findings: Patient with fever, tachycardia, respiratory distress, leukocytosis, lactate is pending but would meet criteria for sepsis secondary to a dog bite with possible tendon involvement. Sepsis-secondary to dog bite, linezolid secondary to history of renal failure and Zosyn for broad-spectrum coverage, check CT scan, blood cultures pending- should have results later today though, CRP and ESR are improving, maintain current antibiotics Chest pain-this is reproducible chest pain did get CTA is concerned about pulmonary embolism with acute onset of the pain and pleuritic nature. CTA ne gative for pulmonary embolism he does have a history of PE in the past and has been on Eliquis prior Left arm erythema-and ultrasound confirmed left upper extremity venous thrombosis-starting Eliquis Acute elevation in high-sensitivity troponin-improved this morning. 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-according to his med list not on any inhalers, does wear 3 L of supplemental oxygen has good O2 saturations with that Coronary artery disease with stent-will check BNP and high-sensitivity troponin, does have some mild peripheral edema-see above, check on echo Hypertension-continue his home medications Chronic combined congestive heart failure by history--see above Generalized anxiety disorder-continue with home medications GERD-continue with home medications Iron deficiency anemia-monitor daily BPH-continue with home medications Severe protein calorie malnutrition-diet supplement Admission status: Patient with failed outpatient treatment of dog bite now with fever and chills and symptoms consistent with tenosynovitis leading to sepsis, medically necessary treatment will span 2 midnights. Inpatient status ? DS: Summary Hospital Course Hospital Course: Patient admitted from the emergency room with sepsis due to dog bite, had also issues with chest pain concern for PE CT scan was negative for that, he has 1 solitary kidney so concerned with kidney function his creatinine did bump up to 1.9 but is improved to 1.3 today, placed on broad-spectrum antibiotics for the sepsis, he improved daily. His only other complication was right upper extremity thrombophlebitis, currently starting on Eliquis today. Overall much improved today. He is an excellent rehabilitation candidate. Medications see list. Discharge to rehab. Status at Discharge Overall status at discharge: patient is not back to baseline Time Spent with Patient Time attestation: Total time spent providing and/or coordinating discharge services: Time spent: greater than 30 minutes Exam Constitutional Vital Signs, click to edit/add: Last Vital Signs Temp 97.5 F L 11/06/24 08:11 Pulse 68 11/06/24 08:11 Resp 18 11/06/24 08:11 BP 153/77 H 11/06/24 08:11 Pulse Ox 92 L 11/06/24 08:11 O2 Del Method Room Air 11/06/24 08:11 O2 Flow Rate 3 11/06/24 04:34 DS: Data Data Completed and Pending Labs on day of discharge: Labs from last 24 hours 11/06/24 11/05/24 11/04/24 05:13 10:23 01:05 WBC 6.6 RBC 2.86 L Hgb 9.0 L Hct 27.6 L MCV 96.5 H MCH 31.5 MCHC 32.6 RDW 15.0 Plt Count 180 MPV 10.8 Neut % (Auto) 75.6 H Lymph % (Auto) 9.8 L [place] % (Auto) 13.3 H Eos % (Auto) 0.6 L Baso % (Auto) 0.2 Neut # (Auto) 5.0 Lymph # (Auto) 0.7 L [place] # (Auto) 0.9 H Eos # (Auto) 0.0 Baso # (Auto) 0.0 Abs Immat Gran (auto) 0.03 Imm/Tot Granulo (auto) 0.5 Sodium 139 Potassium 4.2 Chloride 107 Carbon Dioxide 25.3 Anion Gap 10.9 BUN 22.0 H Creatinine 1.36 H Est GFR ( Amer) >60 Est GFR (Non-Af Amer) 50 L BUN/Creatinine Ratio 16.2 Glucose 113 H Calcium 7.7 L C-Reactive Protein 7.71 H Urine Color Yellow Urine Clarity Clear Urine pH 5.5 Ur Specific [place] 1.025 Urine Protein Negative Urine Glucose (UA) Negative Urine Ketones Negative Urine Occult Blood Negative Urine Nitrite Negative Urine Bilirubin Negative Urine Urobilinogen 0.2 Ur Leukocyte Esterase Negative Stool Occult Blood Negative RPR w/Rflx to Titer Non reactive Hep Bs Antibody, Quant 42.9 Preliminary micro results at discharge 11/03/24 12:02 Blood Culture Result 2 - Preliminary Blood NO GROWTH AT 36-48 HOURS. FINAL TO FOLLOW. 11/03/24 11:37 Blood Culture Result 1 - Preliminary Blood NO GROWTH AT 36-48 HOURS. FINAL TO FOLLOW. Discharge Plan Discharge Disposition: Xfer [facility] Discharge Medications: New Eliquis 5 mg Tablet 10 mg PO BID Qty: 60 11RF Rx Instructions: change to 5 mg po BID on 11/13 linezolid 600 mg tablet 600 mg PO BID 10 Days Qty: 20 0RF amoxicillin-pot clavulanate 875-125 mg tablet 1 tab PO Q12H Qty: 20 0RF Continued atorvastatin 40 mg tablet 40 mg PO .QHS primidone 50 mg tablet 100 mg PO Q8H prednisone 10 mg tablet 10 mg PO BIDWM bumetanide 2 mg tablet 2 mg PO QAM amlodipine 2.5 mg tablet 2.5 mg PO .QD doxepin 10 mg capsule 10 mg PO TID omeprazole 40 mg capsule,delayed release(DR/EC) 40 mg PO .BIDAC carvedilol 3.125 mg tablet 3.125 mg PO Q12H potassium chloride 20 mEq tablet,ER particles/crystals 20 meq PO QAM metoclopramide HCl 5 mg tablet 5 mg PO AC tamsulosin 0.4 mg capsule 0.4 mg PO .QD ondansetron 4 mg tablet,disintegrating 4 mg PO Q8H PRN (Reason: nausea and vomiting) amoxicillin-pot clavulanate 875-125 mg tablet 1 tab PO Q12H Rx Instructions: THRU 11/06/24 fenofibrate nanocrystallized 145 mg tablet 145 mg PO .QD Print Language: Danish Senior Copywriter/Test Technician Instructions: Discharge to [facility] skilled Forms: Portal Instructions
--- NOTE | 2024-11-06 09:42 | SWNOTE1 ---
CHRISTOPHER faxed over dc med rec and updated vitals and labs to [facility]. CHRISTOPHER called and set up transportation with trips for 11:45-12:15. CHRISTOPHER notified daughter Ann of time and she will let pt's know. CHRISTOPHER also let pt, nursing, and [facility] know time. CHRISTOPHER completed HENS online. CHRISTOPHER took packet to med/surge floor. Pt is going skilled to [facility].
[2024-11-06] MEDS: POTASSIUM CHLORIDE 10 MEQ ER TABLET 20 MEQ PO (10:51)
[2024-11-06] MEDS: FENOFIBRATE 54 MG TABLET 162 MG PO (10:51)
[2024-11-06] MEDS: AMLODIPINE BESYLATE 5 MG TABLET 2.5 MG PO (10:52)
[2024-11-06] MEDS: TAMSULOSIN HCL 0.4 MG CAPSULE PO (10:52)
[2024-11-06] MEDS: CLOPIDOGREL BISULFATE 75 MG TABLET PO (10:53)
[2024-11-06] MEDS: APIXABAN 5 MG TABLET 10 MG PO (10:53)
[2024-11-06] MEDS: CARVEDILOL 3.125 MG TABLET PO (10:53)
[2024-11-06] MEDS: ACETAMINOPHEN 500 MG TABLET 1000 MG PO (11:21)
--- NOTE | 2024-11-06 12:24 | PC.NURSE ---
report given to Kierra at [facility], all questions answered
== END 2024-11-06 12:27 | DRG 871 ==
LOC: ER 11:29 → MS 12:17
PROVIDERS: Registered Nurse; Admitting Provider Family Medicine; Emergency Provider Emergency Medicine; PCP Student in an Organized Health Care Education/Training Program; Visit Provider Family Medicine
DX: A41.9 Sepsis, unspecified organism (principal); E43 Unspecified severe protein-calorie malnutrition; L03.113 Cellulitis of right upper limb; J96.11 Chronic respiratory failure with hypoxia; I50.42 Chronic combined systolic (congestive) and diastolic (congestive) heart failure; I13.0 Hypertensive heart and chronic kidney disease with heart failure and stage 1 through stage 4 chronic kidney disease, or unspecified chronic kidney disease; S61.411A Laceration without foreign body of right hand, initial encounter; W54.0XXA Bitten by dog, initial encounter; F41.1 Generalized anxiety disorder; K21.9 Gastro-esophageal reflux disease without esophagitis; N40.0 Benign prostatic hyperplasia without lower urinary tract symptoms; N18.30 Chronic kidney disease, stage 3 unspecified; R07.9 Chest pain, unspecified; I80.8 Phlebitis and thrombophlebitis of other sites; J98.4 Other disorders of lung; I25.10 Atherosclerotic heart disease of native coronary artery without angina pectoris; M65.841 Other synovitis and tenosynovitis, right hand; D50.9 Iron deficiency anemia, unspecified; R79.89 Other specified abnormal findings of blood chemistry; Z90.5 Acquired absence of kidney; Z85.528 Personal history of other malignant neoplasm of kidney; Z79.899 Other long term (current) drug therapy; Z88.8 Allergy status to other drugs, medicaments and biological substances; Z86.711 Personal history of pulmonary embolism
CPT/HCPCS: 36415; 71275; 73110; 73200; 80048; 80053; 81001; 81003; 82800; 83605; 83880; 84484; 85007; 85025; 85027; 85652; 86140; 86317; 86592; 87040; 87045; 87046; 87389; 87427; 87493; 87522; 87804; 87811; 93005; 93306; 93971; 94667; 94668; 94761; 97161; 97165; 99285; G0328; J1100; J1650; J1885; J2020; J2270; J2543; J7512; Q0162; Q9966

== ENCOUNTER 2024-11-19 09:43 | Observation (INO) | payer MEDICARE, SELFPAY ==
[2024-11-19] VITALS (27 sets, daily range): BP systolic 115–174; BP diastolic 65–92; PULSE 54–117; TEMP 36.4–36.7; O2SAT 83–96; BMI 38.3; BMI 31.9
--- NOTE | 2024-11-19 10:40 | ECG_ITS ---
[facility] Test Date: 2024-11-19 Pat Name: PATTIE AMADO Department: Room: - Gender: Male Accounts Payables Clerk: : [id number] Requested By: [id number] Order Number: [id number] Reading MD: TIERA RODRIGUEZ M.D. Measurements Intervals [place] Rate: 92 P: 150 TN: 186 QRS: 34 QRSD: 72 T: 45 QT: 334 QTc: 384 Interpretive Statements sinus rhythm with frequent supraventricular premature complexes 9140 abnormal rhythm ECG Compared to ECG 11/03/2024 17:37:22 No significant changes Electronically Signed On 11-19-2024 17:37:46 EDT by TIERA RODRIGUEZ M.D.
--- NOTE | 2024-11-19 11:06 | ED_ITS ---
HPI HPI - General Adult General Chief complaint: Back Pain/Injury Stated complaint: FALL - LEFT SIDE PAIN Time Seen by Provider: 11/19/24 10:05 Source: patient Mode of arrival: Wheelchair History of Present Illness HPI narrative: 84-year-old male to the emergency department chief complaint of accidental fall. Patient reports that yesterday he was attempting to pick something up off the floor and uses cane when he fell over under his left side. He reports that he hit a stool with his left lateral/posterior ribs. He has had increasing pain in that region ever since. He is worried about his spleen. He is on Eliquis. He did not hit his head or lose consciousness. He reports some skin tears to his left arm after the fall. Related Data Home Medications ?Medication ?Instructions ?Recorded ?Confirmed amlodipine 2.5 mg tablet 2.5 mg PO .QD 11/03/24 11/19/24 atorvastatin 40 mg tablet 40 mg PO .QHS 11/03/24 11/19/24 bumetanide 2 mg tablet 2 mg PO QAM 11/03/24 11/19/24 carvedilol 3.125 mg tablet 3.125 mg PO Q12H 11/03/24 11/19/24 metoclopramide HCl 5 mg tablet 5 mg PO AC 11/03/24 11/19/24 omeprazole 40 mg capsule,delayed 40 mg PO .BIDAC 11/03/24 11/19/24 release ondansetron 4 mg disintegrating 4 mg PO Q8H PRN nausea and vomiting 11/03/24 11/19/24 tablet potassium chloride 20 mEq 20 meq PO QAM 11/03/24 11/19/24 tablet,extended release(part/cryst) prednisone 10 mg tablet 10 mg PO BIDWM 11/03/24 11/19/24 primidone 50 mg tablet 100 mg PO Q8H 11/03/24 11/19/24 tamsulosin 0.4 mg capsule 0.4 mg PO .QD 11/03/24 11/19/24 apixaban 5 mg tablet (Eliquis) 5 mg PO BID 11/19/24 11/19/24 oxycodone-acetaminophen 10 mg-325 1 tab PO Q6H PRN pain 11/19/24 11/19/24 mg tablet Allergies Allergy/AdvReac Type Severity Reaction Status Date / Time rivaroxaban (From Xarelto) AdvReac Severe kidney Verified 11/03/24 09:36 failure ticagrelor (From Brilinta) AdvReac Severe kidney Verified 11/03/24 09:36 failure Opioid HPI Opioid Management Most Recent Opioid Data: Last Pain Scale 8 11/06/24 11:21 11/06/24 Last ORT Total Score 0 11/03/24 12:28 11/03/24 Last ORT Risk Category Low Risk 11/03/24 12:28 11/03/24 Review of Systems ROS Status of ROS 10 or more systems reviewed and unremark able except as noted in history and below [facility] History (Updated 11/19/24 @ 13:37 by Alec Mims MD) Sepsis ?A41.9 - Sepsis, unspecified organism (ICD-10) Left wrist sprain ?S63.502A - Unspecified sprain of left wrist, initial encounter (ICD-10) Adult failure to thrive ?R62.7 - Adult failure to thrive (ICD-10) Dog bite ?W54.0XXA - Bitten by dog, initial encounter (ICD-10) Cellulitis of hand, right ?L03.113 - Cellulitis of right upper limb (ICD-10) History of heart attack ?I25.2 - Old myocardial infarction (ICD-10) Arthritis ?M19.90 - Unspecified osteoarthritis, unspecified site (ICD-10) Kidney disease ?N28.9 - Disorder of kidney and ureter, unspecified (ICD-10) Hypertension ?I10 - Essential (primary) hypertension (ICD-10) Surgical History (Updated 11/03/24 @ 12:24 by Blanka Gillespie) History of left knee replacement ?Z96.652 - Presence of left artificial knee joint (ICD-10) History of cholecystectomy ?Z90.49 - Acquired absence of other specified parts of digestive tract (ICD- 10) History of left nephrectomy ?Z90.5 - Acquired absence of kidney (ICD-10) H/O heart artery stent ?Z95.5 - Presence of coronary angioplasty implant and graft (ICD-10) Social History Highest level of school completed/degree received: some college, no degree Little interest or pleasure in doing things: not at all Feeling down, depressed, or hopeless: not at all Exam Narrative Exam Narrative: Primary Survey Airway Intact Lung sounds clear and equal bilaterally Pulses full and equal to femoral, radial, and dorsalis pedis bilaterally Heart regular rate and rhythm Skin warm, dry, pink GCS 15 Movement and sensation intact to all extremities Patient Fully Exposed. Bruising to the left flank/ribs. Secondary Survey General: GCS 15; Alert HEENT: Head atraumatic; Facial bones stable; Eyes normal inspection, Pupils round, 4-2mm blt; No evidence of oropharyngeal trauma; No blood in the nares or septal hematoma; Tympanic Membranes intact, no hemotympanum or drainage Neck: Normal inspection; no midline cervical tenderness; No tracheal deviation; No JVD Resp: Normal breath sounds, no wheeze or crackles; left sided lateral chest wall tenderness/bruising. No crepitus, or subcutaneous emphysema; No other visible evidence of chest wall trauma; Chest rise symmetric; No respiratory distress Heart: Heart rate and rhythm regular; Carotid, radial, femoral, dorsalis pedis pulses +2 and equal bilaterally; No Murmurs Abdomen: Soft; Non-tender No ecchymosis or visible wounds to abdominal wall; No distention, guarding, rigidity, or rebound; Pelvis stable, no pain on compression MSK: All major joints with normal ROM. No deformities. No bony tenderness. No tenderness or step-offs to palpation of thoracic or lumbar spine; No ecchymosis or wounds to upper or lower back Neuro: Alert and oriented; Sensation intact and symmetric bilaterally; muscle strengths symmetric bilaterally in the upper and lower extremities. Skin: Color normal; No rash; Warm; Dry Constitutional Vital Signs, click to edit/add: Last Vital Signs Temp 98.0 F 11/19/24 10:00 Pulse 96 H 11/19/24 12:10 Resp 18 11/19/24 12:10 BP 115/66 11/19/24 12:02 Pulse Ox 88 L 11/19/24 13:29 O2 Del Method Room Air 11/19/24 13:29 O2 Flow Rate 1 11/19/24 13:29 Course Vital Signs Vital signs: Vital Signs Temperature 98.0 F 11/19/24 10:00 Pulse Rate 76 11/19/24 10:00 Respiratory Rate 22 H 11/19/24 10:00 Blood Pressure 145/65 H 11/19/24 10:00 Pulse Oximetry 96 11/19/24 10:00 Oxygen Delivery Method Room Air 11/19/24 10:00 Temperature 98.0 F 11/19/24 10:00 Pulse Rate 96 H 11/19/24 12:10 Respiratory Rate 18 11/19/24 12:10 Blood Pressure 115/66 11/19/24 12:02 Pulse Oximetry 88 L 11/19/24 13:29 Oxygen Delivery Method Room Air 11/19/24 13:29 Oxygen Delivery Flow Rate 1 11/19/24 13:29 Medical Decision Making MDM Narrative Medical decision making narrative: 84-year-old male to the emergency department with chief complaint of left-sided flank/rib pain, skin tear to left arm. Vital stable, the patient is afebrile. Given his advanced age and anticoagulated status will obtain imaging of his head and neck as well as CT chest abdomen pelvis due to pain at the thoracoabdominal junction. Basic labs. Patient agrees with this plan. He is given some pain medication to help facilitate his lying flat. Lab work reviewed and noted. CT head: Negative CT cervical spine: Negative CT chest abdomen pelvis: 10th and 11th rib fractures on the left. Patient desaturating. Difficult to control pain. History of chronic interstitial lung disease. He will need admitted to the hospital for pain control. Case discussed with hospitalist who agrees admit the patient to her service. Medical Records Medical records reviewed: Yes I reviewed the patient's medical records Lab Data Lab results reviewed: Yes I reviewed the patient's lab results Labs: Lab Results 11/19/24 Range/Units 11:10 WBC 19.1 H (4.0-11.0) 10^3/uL RBC 3.35 L (4.70-6.10) 10^6/uL Hgb 10.5 L (14.0-18.0) g/dL Hct 32.2 L (42.0-54.0) % MCV 96.1 H (80.0-94.0) fL MCH 31.3 (25.9-34.0) pg MCHC 32.6 (29.9-35.2) g/dL RDW 15.8 H (11.0-15.0) % Plt Count 241 (150-450) 10^3/uL MPV 10.0 (9.5-13.5) fL Seg Neuts % (Manual) 88.0 H (43.0-75.0) Lymphocytes % (Manual) 2.0 L (20.5-60.0) % Monocytes % (Manual) 10.0 (1.7-12.0) % Eosinophils % (Manual) 0.0 L (0.9-7.0) % Basophils % (Manual) 0.0 L (0.2-2.0) % Neutrophils # (Manual) 16.80 H (1.4-6.5) 10^3/uL Lymphocytes # (Manual) 0.38 L (1.20-3.80) 10^3/uL Monocytes # (Manual) 1.91 H (0.30-0.80) 10^3/uL Eosinophils # (Manual) 0.00 (0.00-0.70) 10^3/uL Basophils # (Manual) 0.00 (0.00-0.10) 10^3/uL PT 11.7 H (9.0-11.6) sec INR 1.12 APTT 24.4 (22.3-36.2) sec Sodium 145 (136-145) mmol/L Potassium 3.7 (3.5-5.1) mmol/L Chloride 106 (98-107) mmol/L Carbon Dioxide 31.3 (21.0-32.0) mmol/L Anion Gap 11.4 BUN 21.0 H (7.0-18.0) mg/dL Creatinine 1.23 (0.70-1.30) mg/dL Est GFR ( Amer) >60 (>=60 mL/min/1.73m^2) Est GFR (Non-Af Amer) 56 L (>=60 mL/min/1.73m^2) BUN/Creatinine Ratio 17.1 Glucose 159 H (74-106) mg/dL Calcium 8.6 (8.5-10.1) mg/dL Total Bilirubin 0.3 (0.2-1.0) mg/dL AST 16 (15-37) U/L ALT 20 (16-63) U/L Alkaline Phosphatase 62 (46-116) U/L Troponin I High Sens 22.0 (4.0-76.1) pg/mL Total Protein 6.3 L (6.4-8.2) g/dL Albumin 2.9 L (3.4-5.0) g/dL Globulin 3.4 g/dL Albumin/Globulin Ratio 0.[address] scan - head: Attestation: I have reviewed the pertinent imaging results. ECG Data Attestation: I personally reviewed and interpreted this ECG as follows: (Normal sinus rhythm at a rate of 92. No STEMI. Normal QTc at 384.) Critical Care Time Critical Care Time Critical Care Time: Yes Total Critical Care Time: 30 Attestation: Critical Care Procedure Note Authorized and Performed by: Alec Mims DO Total critical care time: 30-minutes Due to a high probability of clinically significant, life threatening deterioration, the patient required my highest level of preparedness to intervene emergently and I personally spent this critical care time directly and personally managing the patient. This critical care time included obtaining a history; examining the patient; pulse oximetry; ordering and review of studies; arranging urgent treatment with development of a management plan; evaluation of patient's response to treatment; frequent reassessment; and, discussions with other providers. This critical care time was performed to assess and manage the high probability of imminent, life-threatening deterioration that could result in multi-organ failure. It was exclusive of separately billable procedures and treating other patients and teaching time. Please see MDM section and the rest of the note for further information on patient assessment and treatment. Discharge Plan Discharge Chief Complaint: Back Pain/Injury Clinical Impression: Accidental fall, Fracture of rib, Acute and chronic respiratory failure with hypoxia Patient Disposition: Admitted as Observation Time of Disposition Decision: 13:36 Condition: Fair Prescriptions / Home Meds: No Action atorvastatin 40 mg tablet 40 mg PO .QHS primidone 50 mg tablet 100 mg PO Q8H prednisone 10 mg tablet 10 mg PO BIDWM bumetanide 2 mg tablet 2 mg PO QAM amlodipine 2.5 mg tablet 2.5 mg PO .QD omeprazole 40 mg capsule,delayed release(DR/EC) 40 mg PO .BIDAC carvedilol 3.125 mg tablet 3.125 mg PO Q12H potassium chloride 20 mEq tablet,ER particles/crystals 20 meq PO QAM metoclopramide HCl 5 mg tablet 5 mg PO AC tamsulosin 0.4 mg capsule 0.4 mg PO .QD ondansetron 4 mg tablet,disintegrating 4 mg PO Q8H PRN (Reason: nausea and vomiting) Eliquis 5 mg Tablet 5 mg PO BID Rx Instructions: change to 5 mg po BID on 3/11 oxycodone-acetaminophen 10-325 mg tablet 1 tab PO Q6H PRN (Reason: pain) Print Language: Romanian Referrals: Nasir Mayer MD [Primary Care Provider] - 1 week
[2024-11-19] MEDS: MORPHINE SULFATE 4 MG/ML VIAL IV ×2 (11:12→12:10)
[2024-11-19] MEDS: BACITRACIN 0.9 GM PACKET 3 PACKET TOPICAL (11:14)
--- NOTE | 2024-11-19 11:18 | PC.NURSE ---
skin tears to LFA cleansed, bacitracin applied, Vaseline gauze to top with non adherent dressing and Coban to top.
[2024-11-19 11:23] LABS: Hematocrit 32.2 % (42.0-54.0); Hemoglobin 10.5 g/dL (14.0-18.0); Mean Corpuscular HGB Conc 32.6 g/dL (29.9-35.2); Mean Corpuscular Hemoglobin 31.3 pg (25.9-34.0); Mean Corpuscular Volume 96.1 fL (80.0-94.0); Platelet Count 241 10^3/uL (150-450); Red Blood Count 3.35 10^6/uL (4.70-6.10); Red Cell Distribution Width 15.8 % (11.0-15.0); White Blood Count 19.1 10^3/uL (4.0-11.0)
[2024-11-19 11:32] LABS: INR 1.12; Partial Thromboplastin Time 24.4 sec (22.3-36.2); Prothrombin Time 11.7 sec (9.0-11.6)
[2024-11-19 11:33] LABS: Alanine Aminotransferase 20 U/L (16-63); Albumin Globulin Ratio 0.9; Albumin Level 2.9 g/dL (3.4-5.0); Alkaline Phosphatase 62 U/L (46-116); Anion Gap 11.4; Aspartate Amino Transferase 16 U/L (15-37); BUN Creatinine Ratio 17.1; Bilirubin Total 0.3 mg/dL (0.2-1.0); Calcium 8.6 mg/dL (8.5-10.1); Carbon Dioxide 31.3 mmol/L (21.0-32.0); Chloride 106 mmol/L (98-107); Estimated GFR (African America >60 (>=60 mL/min/1.73m^2); Estimated GFR (Non-African Ame 56 (>=60 mL/min/1.73m^2); Globulin 3.4 g/dL; Glucose 159 mg/dL (74-106); Potassium 3.7 mmol/L (3.5-5.1); Sodium 145 mmol/L (136-145); Total Protein 6.3 g/dL (6.4-8.2)
[2024-11-19 11:49] LABS: Lymphocytes Absolute Manual 0.38 10^3/uL (1.20-3.80); Monocytes Absolute Manual 1.91 10^3/uL (0.30-0.80)
--- NOTE | 2024-11-19 12:01 | PC.NURSE ---
Prior dog bite to right hand healing wnl., no s/s of infection, no draiange and area cleansed with sterile saline, bacitracin, Vaseline gauze , non adherent dressing and coban.
--- NOTE | 2024-11-19 12:04 | PC.NURSE ---
left knee skin avulsion cleansed with sterile saline, bacitracin applied, Vaseline gauze, non adherent dressing and magali wrap applied to top.
--- NOTE | 2024-11-19 14:01 | PM.HP ---
HPI H&P: HPI History of Present Illness Chief complaint: FALL - LEFT SIDE PAIN RIB FX Narrative: Patient is a 84 y.o white male with past medical history of AFib (takes Eliquis), GERD, BPH, HTN, HLD who presented to the ER today after trying to reach to get something with his cane and falling over on a bar stool. This caught his left side of his trunk. He denies LOC. Patient was found to have 10th and 11th rib fractures on the left. CT of the chest, Abdomen, chest and head showed no other acute findings. Hb 10.5, Cr 1.21, WBC's 19.1 but patient takes chronic prednisone. Patient received IV morphine in the ER without much relief. Also patient required 2L via NC to maintain oxygen saturations due to pain in his ribs. He reports pain is better controlled at the time of admission exam. Opioid HPI Opioid Management Most Recent Pain and Opioid Data: Last Pain Scale 8 11/06/24 11:21 11/06/24 Last ORT Total Score 0 11/19/24 15:30 11/19/24 Last ORT Risk Category Low Risk 11/19/24 15:30 11/19/24 Review of Systems ROS Narrative ROS: a complete review of systems were reviewed with patient and are positive as below or listed in History of Chief Complaint. General: no fever, chills, night sweats Head: no headache, trauma, visual changes, nausea or vomiting Skin: no reported rashes, itching or sores Eyes: no blurriness of vision Ears: no reported hearing loss, vertigo, earache, or tinnitus Throat: no sore throat, hoarseness, swelling of neck, or tongue pain Heart: no chest pain Lungs: shortness of breath no cough GI: no diarrhea or vomiting/nausea Urinary: no urinary urgency, frequency or pain Neuro: no numbness or tingling HEM: no bleeding issues or bruising ENDO: no thyroid problems Psych: no anxiety or depression PFSH [facility] Medical History (Updated 11/19/24 @ 16:25 by Ruma Kim DO) Chronic a-fib ?I48.20 - Chronic atrial fibrillation, unspecified (ICD-10) HLD (hyperlipidemia) ?E78.5 - Hyperlipidemia, unspecified (ICD-10) BPH without obstruction/lower urinary tract symptoms ?N40.0 - Benign prostatic hyperplasia without lower urinary tract symptoms (ICD-10) Sepsis ?A41.9 - Sepsis, unspecified organism (ICD-10) Left wrist sprain ?S63.502A - Unspecified sprain of left wrist, initial encounter (ICD-10) Adult failure to thrive ?R62.7 - Adult failure to thrive (ICD-10) Dog bite ?W54.0XXA - Bitten by dog, initial encounter (ICD-10) Cellulitis of hand, right ?L03.113 - Cellulitis of right upper limb (ICD-10) History of heart attack ?I25.2 - Old myocardial infarction (ICD-10) Arthritis ?M19.90 - Unspecified osteoarthritis, unspecified site (ICD-10) Kidney disease ?N28.9 - Disorder of kidney and ureter, unspecified (ICD-10) Hypertension ?I10 - Essential (primary) hypertension (ICD-10) Surgical History History of left knee replacement ?Z96.652 - Presence of left artificial knee joint (ICD-10) History of cholecystectomy ?Z90.49 - Acquired absence of other specified parts of digestive tract (ICD-10) History of left nephrectomy ?Z90.5 - Acquired absence of kidney (ICD-10) H/O heart artery stent ?Z95.5 - Presence of coronary angioplasty implant and graft (ICD-10) Social History Highest level of school completed/degree received: high school graduate Little interest or pleasure in doing things: not at all Feeling down, depressed, or hopeless: not at all Meds Home Medications and Allergies Home Medications ?Medication ?Instructions ?Recorded ?Confirmed ?Type amlodipine 2.5 mg tablet 2.5 mg PO .QD 11/03/24 11/19/24 History atorvastatin 40 mg tablet 40 mg PO .QHS 11/03/24 11/19/24 History bumetanide 2 mg tablet 2 mg PO QAM 11/03/24 11/19/24 History carvedilol 3.125 mg tablet 3.125 mg PO Q12H 11/03/24 11/19/24 History metoclopramide HCl 5 mg tablet 5 mg PO AC 11/03/24 11/19/24 History omeprazole 40 mg capsule,delayed 40 mg PO .BIDAC 11/03/24 11/19/24 History release ondansetron 4 mg disintegrating 4 mg PO Q8H PRN nausea and vomiting 11/03/24 11/19/24 History tablet potassium chloride 20 mEq 20 meq PO QAM 11/03/24 11/19/24 History tablet,extended release(part/cryst) prednisone 10 mg tablet 10 mg PO BIDWM 11/03/24 11/19/24 History primidone 50 mg tablet 100 mg PO Q8H 11/03/24 11/19/24 History tamsulosin 0.4 mg capsule 0.4 mg PO .QD 11/03/24 11/19/24 History apixaban 5 mg tablet (Eliquis) 5 mg PO BID 11/19/24 11/19/24 History oxycodone-acetaminophen 10 mg-325 1 tab PO Q6H PRN pain 11/19/24 11/19/24 History mg tablet Allergies Allergy/AdvReac Type Severity Reaction Status Date / Time rivaroxaban (From Xarelto) AdvReac Severe kidney Verified 11/03/24 09:36 failure ticagrelor (From Brilinta) AdvReac Severe kidney Verified 11/03/24 09:36 failure Exam Narrative Exam Narrative: General: Patient is alert, and oriented to person, place and time with normal affect, proper hygiene Skin: multiple ecchymosis over forearms and on the left side of trunk/lower ribs Head: atraumatic, acephalic Eyes: PERRLA, no nystagmus present, conjunctiva clear, no scleral icterus Ears: normal gross auditory acuity Heart: Normal rate and rhythm, no murmurs/rubs/gallops Lungs: no audible wheezes, crackles and normal breath sounds all lung damon Abdomen: Normal audible bowel sounds, no distension, No palpable masses, no organomegaly, no rebound/guarding/ or rigidity Musculoskeletal: no swelling bilateral lower extremities Neuro: CN II-X grossly intact Constitutional Vital Signs, click to edit/add: Last Vital Signs Temp 98.0 F 11/19/24 10:00 Pulse 89 11/19/24 13:40 Resp 15 11/19/24 13:40 BP 115/66 11/19/24 12:02 Pulse Ox 92 L 11/19/24 13:40 O2 Del Method Room Air 11/19/24 13:29 O2 Flow Rate 1 11/19/24 13:29 Results Labs Labs: Short CBC 11/19/24 Range/Units 11:10 WBC 19.1 H (4.0-11.0) 10^3/uL Hgb 10.5 L (14.0-18.0) g/dL Hct 32.2 L (42.0-54.0) % Plt Count 241 (150-450) 10^3/uL BMP 11/19/24 11:10 Sodium 145 Potassium 3.7 Chloride 106 Carbon Dioxide 31.3 BUN 21.0 H Creatinine 1.23 Glucose 159 H Calcium 8.6 Liver Function 11/19/24 Range/Units 11:10 Total Bilirubin 0.3 (0.2-1.0) mg/dL AST 16 (15-37) U/L ALT 20 (16-63) U/L Alkaline Phosphatase 62 (46-116) U/L Albumin 2.9 L (3.4-5.0) g/dL Assessment and Plan Assessment and Plan (1) Fracture of rib: Assessment and Plan: OPEP, monitor H&H given patient on Eliquis. Monitor closely for active signs of hematoma. Monitor oxygen status. pain control with oxycodone and IV morphine. Qualifiers: Encounter type: initial encounter Fracture type: closed Laterality: left Rib fracture type: multiple ribs Qualified Code(s): S22.42XA - Multiple fractures of ribs, left side, initial encounter for closed fracture (2) Pain in rib: Assessment and Plan: due to #1 (3) Acute respiratory failure with hypoxia: Assessment and Plan: from acute rib fracture. OPEP and use oxygen as needed. (4) Arthritis: Assessment and Plan: continue prednisone (5) Hypertension: Assessment and Plan: continue coreg, bumex, amlodipine Qualifiers: Hypertension type: primary hypertension Qualified Code(s): I10 - Essential (primary) hypertension (6) BPH without obstruction/lower urinary tract symptoms: Assessment and Plan: continue flomax (7) HLD (hyperlipidemia): Assessment and Plan: continue atorvastatin Qualifiers: Hyperlipidemia type: unspecified Qualified Code(s): E78.5 - Hyperlipidemia, unspecified (8) Chronic a-fib: Assessment and Plan: continue eliquis and coreg Plan Patient is a full code will get PT/OT evaluations continue eliquis for dvt prophylaxis patient is observation status and is not expected to cross 2 midnights.
[2024-11-19] MEDS: MORPHINE SULFATE 2 MG/ML SYRINGE IV (15:06)
[2024-11-19] MEDS: PRIMIDONE 50 MG TABLET 100 MG PO (16:41)
[2024-11-19] MEDS: DOCUSATE SODIUM 100 MG CAPSULE 200 MG PO (16:41)
[2024-11-19] MEDS: PREDNISONE 10 MG TABLET PO (16:41)
[2024-11-19] MEDS: OXYCODONE HCL/ACETAMINOPHEN 5MG/325MG 2 TAB PO ×2 (16:42→23:32)
[2024-11-19] MEDS: APIXABAN 5 MG TABLET PO (21:25)
[2024-11-19] MEDS: CARVEDILOL 3.125 MG TABLET PO (21:25)
[2024-11-19] MEDS: ATORVASTATIN CALCIUM 40 MG TABLET PO (21:25)
[2024-11-20] VITALS (9 sets, daily range): BP systolic 115–162; BP diastolic 70–80; PULSE 55–82; TEMP 36.3–36.6; O2SAT 92–97
[2024-11-20] MEDS: MORPHINE SULFATE 2 MG/ML SYRINGE IV (02:30)
[2024-11-20] MEDS: OXYCODONE HCL/ACETAMINOPHEN 5MG/325MG 2 TAB PO (05:57)
[2024-11-20] MEDS: DOCUSATE SODIUM 100 MG CAPSULE 200 MG PO (05:57)
[2024-11-20 06:31] LABS: Basophils Absolute Auto 0.1 10^3/uL (0.0-0.1); Basophils Percent Auto 0.4 % (0.2-2.0); Eosinophils Absolute Auto 0.5 10^3/uL (0.0-0.7); Eosinophils Percent Auto 2.8 % (0.9-7.0); Hematocrit 31.5 % (42.0-54.0); Immature Granulocytes Abs Auto 0.17 10^3/uL (0.00-0.03); Lymphocytes Absolute Auto 2.9 10^3/uL (1.2-3.8); Lymphocytes Percent Auto 17.1 % (20.5-60.0); Mean Corpuscular HGB Conc 31.7 g/dL (29.9-35.2); Mean Corpuscular Hemoglobin 30.5 pg (25.9-34.0); Mean Platelet Volume 10.3 fL (9.5-13.5); Monocytes Absolute Auto 2.5 10^3/uL (0.3-0.8); Monocytes Percent Auto 14.6 % (1.7-12.0); Neutrophils Absolute Auto 10.9 10^3/uL (1.4-6.5); Neutrophils Percent Auto 64.1 % (43.0-75.0); Platelet Count 185 10^3/uL (150-450); Red Blood Count 3.28 10^6/uL (4.70-6.10); Red Cell Distribution Width 15.9 % (11.0-15.0)
[2024-11-20 06:48] LABS: Anion Gap 10.6; BUN Creatinine Ratio 18.3; Calcium 8.4 mg/dL (8.5-10.1); Carbon Dioxide 30.3 mmol/L (21.0-32.0); Chloride 104 mmol/L (98-107); Estimated GFR (African America >60 (>=60 mL/min/1.73m^2); Estimated GFR (Non-African Ame >60 (>=60 mL/min/1.73m^2); Glucose 83 mg/dL (74-106); Potassium 3.9 mmol/L (3.5-5.1); Sodium 141 mmol/L (136-145)
[2024-11-20] MEDS: METOCLOPRAMIDE HCL 10 MG TABLET 5 MG PO ×2 (06:57→11:07)
[2024-11-20] MEDS: PANTOPRAZOLE SODIUM 40 MG TABLET.DR PO (06:57)
[2024-11-20] MEDS: ONDANSETRON PF 4 MG/2 ML VIAL IV (06:57)
[2024-11-20] MEDS: BUMETANIDE 1 MG TABLET 2 MG PO (08:35)
[2024-11-20] MEDS: TAMSULOSIN HCL 0.4 MG CAPSULE PO (08:36)
[2024-11-20] MEDS: PREDNISONE 10 MG TABLET PO (08:36)
[2024-11-20] MEDS: CARVEDILOL 3.125 MG TABLET PO (08:36)
[2024-11-20] MEDS: AMLODIPINE BESYLATE 5 MG TABLET 2.5 MG PO (08:36)
[2024-11-20] MEDS: PRIMIDONE 50 MG TABLET 100 MG PO (08:36)
[2024-11-20] MEDS: POTASSIUM CHLORIDE 10 MEQ ER TABLET 20 MEQ PO (08:36)
[2024-11-20] MEDS: APIXABAN 5 MG TABLET PO (08:36)
--- NOTE | 2024-11-20 09:04 | PM.DS1 ---
DS: Providers Provider Date of admission: 11/19/24 15:11 Primary care physician: Nasir Mayer MD Attending physician on admission: Ruma Kim Consults: 11/19/24 13:56 Occupational Therapy Eval and Treat Routine Reason for consultation: acute rib fractures left Has provider been notified: No Physical Therapy Eval and Treat Routine Reason for consultation: acute rib fractures left Has provider been notified: No Discharging clinician: Ruma Kim DS: Diagnosis Discharge Diagnosis (1) Fracture of rib: Qualifiers: Encounter type: initial encounter Fracture type: closed Laterality: left Rib fracture type: multiple ribs Qualified Code(s): S22.42XA - Multiple fractures of ribs, left side, initial encounter for closed fracture (2) Pain in rib: (3) Acute respiratory failure with hypoxia: (4) Arthritis: (5) Hypertension: Qualifiers: Hypertension type: primary hypertension Qualified Code(s): I10 - Essential (primary) hypertension (6) BPH without obstruction/lower urinary tract symptoms: (7) HLD (hyperlipidemia): Qualifiers: Hyperlipidemia type: unspecified Qualified Code(s): E78.5 - Hyperlipidemia, unspecified (8) Chronic a-fib: DS: Summary Hospital Course Hospital Course: Patient is a 84 y.o white male with past medical history of AFib (takes Eliquis), GERD, BPH, HTN, HLD who presented to the ER yesterday after trying to reach to get something with his cane and falling over on a bar stool. This caught his left side of his trunk. He denies LOC. Patient was found to have 10th and 11th rib fractures on the left. CT of the chest, Abdomen, chest and head showed no other acute findings. Hb 10.5, Cr 1.21, WBC's 19.1 but patient takes chronic prednisone. Patient received IV morphine in the ER and overnight, along with Percocet, ice packs. Today, pain is better but still present. He is getting around good with his walker. He has Home Health services already. H&H is stable. Vitals stable. He will be discharged home today with Percocet 1 tab PO q6 hours PRN pain. He has a follow up with Dr. Mayer on Tuesday to address the needs of further pain medication and plans moving forward. He Will be sent home today in stable condition, to resume home health services and use his OPEP. Status at Discharge Functional status at discharge: uses cane/walker Overall status at discharge: patient is progressing back to baseline Time Spent with Patient Time attestation: Total time spent providing and/or coordinating discharge services: Time spent: greater than 30 minutes Exam Narrative Exam Narrative: General: Patient is alert, and oriented to person, place and time with normal affect, proper hygiene Skin: multiple ecchymosis over forearms and on the left side of trunk/lower ribs Head: atraumatic, acephalic Eyes: PERRLA, no nystagmus present, conjunctiva clear, no scleral icterus Ears: normal gross auditory acuity Heart: Normal rate and rhythm, no murmurs/rubs/gallops Lungs: no audible wheezes, crackles and normal breath sounds all lung damon Abdomen: Normal audible bowel sounds, no distension, No palpable masses, no organomegaly, no rebound/guarding/ or rigidity Musculoskeletal: no swelling bilateral lower extremities Neuro: CN II-X grossly intact Constitutional Vital Signs, click to edit/add: Last Vital Signs Temp 97.7 F 11/20/24 08:35 Pulse 78 11/20/24 08:35 Resp 18 11/20/24 08:35 BP 115/76 11/20/24 08:36 Pulse Ox 92 L 11/20/24 08:35 O2 Del Method Room Air 11/20/24 08:35 O2 Flow Rate 2 11/20/24 05:29 DS: Data Data Completed and Pending Labs on day of discharge: Labs from last 24 hours 11/20/24 11/19/24 06:12 11:10 WBC 17.0 H 19.1 H RBC 3.28 L 3.35 L Hgb 10.0 L 10.5 L Hct 31.5 L 32.2 L MCV 96.0 H 96.1 H MCH 30.5 31.3 MCHC 31.7 32.6 RDW 15.9 H 15.8 H Plt Count 185 241 MPV 10.3 10.0 Neut % (Auto) 64.1 Lymph % (Auto) 17.1 L [place] % (Auto) 14.6 H Eos % (Auto) 2.8 Baso % (Auto) 0.4 Neut # (Auto) 10.9 H Lymph # (Auto) 2.9 [place] # (Auto) 2.5 H Eos # (Auto) 0.5 Baso # (Auto) 0.1 Abs Immat Gran (auto) 0.17 H Seg Neuts % (Manual) 88.0 H Lymphocytes % (Manual) 2.0 L Monocytes % (Manual) 10.0 Eosinophils % (Manual) 0.0 L Basophils % (Manual) 0.0 L Imm/Tot Granulo (auto) 1.0 H Neutrophils # (Manual) 16.80 H Lymphocytes # (Manual) 0.38 L Monocytes # (Manual) 1.91 H Eosinophils # (Manual) 0.00 Basophils # (Manual) 0.00 PT 11.7 H INR 1.12 APTT 24.4 Sodium 141 145 Potassium 3.9 3.7 Chloride 104 106 Carbon Dioxide 30.3 31.3 Anion Gap 10.6 11.4 BUN 20.0 H 21.0 H Creatinine 1.09 1.23 Est GFR ( Amer) >60 >60 Est GFR (Non-Af Amer) >60 56 L BUN/Creatinine Ratio 18.3 17.1 Glucose 83 159 H Calcium 8.4 L 8.6 Total Bilirubin 0.3 AST 16 ALT 20 Alkaline Phosphatase 62 Troponin I High Sens 22.0 Total Protein 6.3 L Albumin 2.9 L Globulin 3.4 Albumin/Globulin Ratio 0.9 Discharge Plan Discharge Disposition: Home Health Service Condition: Fair Discharge Medications: Continued atorvastatin 40 mg tablet 40 mg PO .QHS primidone 50 mg tablet 100 mg PO Q8H prednisone 10 mg tablet 10 mg PO BIDWM bumetanide 2 mg tablet 2 mg PO QAM amlodipine 2.5 mg tablet 2.5 mg PO .QD omeprazole 40 mg capsule,delayed release(DR/EC) 40 mg PO .BIDAC carvedilol 3.125 mg tablet 3.125 mg PO Q12H potassium chloride 20 mEq tablet,ER particles/crystals 20 meq PO QAM metoclopramide HCl 5 mg tablet 5 mg PO .TIDAC tamsulosin 0.4 mg capsule 0.4 mg PO .QD ondansetron 4 mg tablet,disintegrating 4 mg PO Q8H PRN (Reason: nausea and vomiting) Eliquis 5 mg Tablet 5 mg PO BID Rx Instructions: change to 5 mg po BID on 11/13 Changed oxycodone-acetaminophen 10-325 mg tablet 1 tab PO Q6H PRN (Reason: pain) 4 Days Qty: 16 0RF Activity: ambulate only with your walker Activity Detail: use your OPEP every 1-2 hours Diet: advance to your usual diet Print Language: Citizen Of [place] Forms: Portal Instructions Follow Up Appointments: Keep Appointment with Dr. Mayer on tuesday as scheduled Discharge location: Home with [facility]
--- NOTE | 2024-11-20 11:33 | CM.NOTE ---
Rounds made with Dr. Kim, pt will discharge to home today on oral pain medication. Pt has f/u appt scheduled to see Dr. Mayer on Thursday 11/23.
--- NOTE | 2024-11-20 13:44 | CM.NOTE ---
Faxed Case Management referral, physician notes and H&P to [facility], pt is active with their services.
--- NOTE | 2024-11-21 15:08 | CM.DCFOLLOWU ---
1st attempt 11/21/24, no answer
--- NOTE | 2024-11-22 13:55 | CM.DCFOLLOWU ---
Person spoke with: patient How are you feeling? still in pain, but doing alright How is your pain? still in pain, but bearable Did you understand your discharge instructions?yes Do you have any questions about your discharge instructions? no Were you given any prescriptions at discharge?no Were you able to get your prescriptions filled?N/A Do you understand how to take your medications as ordered? yes Do you have any questions about your follow up appointment and do you plan to keep your follow up appointment? no questions, follow up reviewed Is there anything else that you would like to discuss? no Questions/Comments/Concerns/Other:none
== END 2024-11-20 13:35 | disposition home health service (06) ==
LOC: ER 13:37 → MS 15:21
PROVIDERS: Admitting Provider Family Medicine; Emergency Provider Student in an Organized Health Care Education/Training Program; PCP Family Medicine; Visit Provider Family Medicine
DX: S22.42XA Multiple fractures of ribs, left side, initial encounter for closed fracture (principal); J96.01 Acute respiratory failure with hypoxia; M19.90 Unspecified osteoarthritis, unspecified site; I10 Essential (primary) hypertension; N40.0 Benign prostatic hyperplasia without lower urinary tract symptoms; E78.5 Hyperlipidemia, unspecified; I48.20 Chronic atrial fibrillation, unspecified; Z79.01 Long term (current) use of anticoagulants; K21.9 Gastro-esophageal reflux disease without esophagitis; W18.39XA Other fall on same level, initial encounter; Z79.52 Long term (current) use of systemic steroids
CPT/HCPCS: 36415; 70450; 71260; 72125; 74177; 80048; 80053; 81001; 84484; 85007; 85025; 85027; 85610; 85730; 93005; 94667; 94761; 96374; 96375; 96376; 97161; 97165; 99285; G0378; J2270; J2405; J7512; Q9966